=== PATIENT | male | born 1960 | race Caucasian/White ===

== ENCOUNTER 2017-12-31 10:21 | Outpatient (CLI) | payer OTHER, SELFPAY ==
--- NOTE | 2017-12-31 10:21 | DI.RAD_ITS ---
SYMPTOM/DIAGNOSIS: RESTRICTED MOTION LEFT ELBOW: Three views. No priors. There is a large enthesophyte at the insertion site of the triceps on the olecranon. Mild spurring is seen at the distal humerus, radial head and proximal ulna. No acute fracture or dislocation, lytic or sclerotic lesion is seen. No radiopaque foreign bodies are seen in the soft tissues. 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
== END 2017-12-31 10:41 ==
PROVIDERS: PCP Internal Medicine; Visit Provider Physician Assistant Surgical
DX: M25.522 Pain in left elbow (principal); M25.822 Other specified joint disorders, left elbow; M19.022 Primary osteoarthritis, left elbow
CPT/HCPCS: 73080

== ENCOUNTER 2018-06-27 15:55 | Outpatient (REF) | payer OTHER, SELFPAY ==
[2018-06-27 20:19] LABS: BUN 26 mg/dL (7-18); CREATININE 1.03 mg/dL (0.70-1.30); Calcium 8.9 mg/dL (8.5-10.1); Chloride 101 mmol/L (98-107); Glucose 132 mg/dL (70-100); Potassium 3.5 mmol/L (3.5-5.1); Sodium 138 mmol/L (136-145)
== END 2018-06-27 16:15 ==
LOC: NCHCN 15:55
PROVIDERS: PCP Internal Medicine; Visit Provider Internal Medicine
DX: I10 Essential (primary) hypertension (principal); E78.5 Hyperlipidemia, unspecified
CPT/HCPCS: 80048

== ENCOUNTER 2019-05-30 14:27 | Emergency (ER) | payer OTHER, SELFPAY ==
--- NOTE | 2019-05-30 14:29 | W.ED.GENAD ---
Discharge Plan Disposition Patient Disposition: HOME Condition: Stable Discharge Details Chief Complaint: Orthopedic Clinical Impression: Bursitis of elbow Primary Care Provider: Noel Vale ED Provider: Sun Paulino Home Meds and New Rx's Prescriptions: New oxycodone 5 mg tablet 5 mg PO Q6H PRN (Reason: pain) Qty: 10 RF: 0 Continued atorvastatin 20 mg tablet 20 mg PO QPM RF: 0 ibuprofen 400 MG tablet 400 mg PO PRN RF: 0 meloxicam 7.5 MG tablet 7.5 mg PO BID RF: 0 lisinopril-hydrochlorothiazide 1 EACH tablet 1 ea PO HS RF: 0 Discharge Instructions Instructions: Elbow Bursitis (ED) Additional Instructions: Continue your meloxicam as directed. Take the oxycodone as needed and directed for pain. Keep the Herbert wrap in place at all times except when showering. Follow-up with your scheduled appointment with Dr. Granados on Saturday. Return to the emergency department if you develop any worsening or concerning symptoms such as fever, increased pain, redness or swelling. Discharge Data Discharge Physician: Sun Paulino Medical Decision Making 58yo M w/ a h/o cubital tunnel syndrome and ulnar nerve decompression x 2 of L elbow who presents w/ worsening L elbow pain, redness and swelling with worsening flexion and extension to L elbow x 2 days. Pt has limitation of full extension and flexion at L elbow which he states is chronic but more painful with this than usual. Olecranon appears mildly to moderately edematous, erythematous, and very tender to touch. There is no fever or evidence of abscess and pt appears nontoxic. Do not suspect septic or infectious bursitis at this time. Will treat as acute inflammatory bursitis with herbert wrap and to continue meloxicam. Pt states he needs something stronger for pain and states he has taken percocet in the past for pain as needed. Will give a script for oxycodone. Pt has a f/u appt with Dr. Granados on Saturday. He is advised to wear the herbert wrap as much as possible. He is advised to return here with any fever or worsening symptoms. Medical Records Medical records reviewed: Yes I reviewed the patient's medical records. HPI General Mode of arrival: ambulatory. Date/Time Provider Initiated Documentation: 05/30/19 14:28. Limitations to Documentation: no limitations. Information obtained by: patient. HPI Narrative: Pt is a 58yo M w/ a h/o chronic L elbow pain and cubitel tunnel syndrome with ulnar decompression x 2 who presents with worsening L elbow pain with swelling, redness and pain and worsening pain with ROM x 2 days. Pt states he chronically has pain and limitation of flexion and extension for several years but states this is worse over the past 2 days. Pt denies any known injury, trauma or repetitive trauma. Pt also denies any fever. He takes meloxicam Related Data Home Medications Medication Instructions Recorded Confirmed ibuprofen 400 mg PO PRN 06/12/16 05/30/19 lisinopril-hydrochlorothiazide 1 ea PO HS 06/03/17 05/30/19 meloxicam 7.5 mg PO BID 06/03/17 05/30/19 atorvastatin 20 mg tablet 20 mg PO QPM 12/31/17 05/30/19 oxycodone 5 mg PO Q6H PRN #10 tab 05/30/19 Previous Rx's Medication Instructions Recorded oxycodone 5 mg PO Q6H PRN #10 tab 05/30/19 Allergies Allergy/AdvReac Type Severity Reaction Status Date / Time codeine AdvReac Nausea Unverified 01/21/19 11:27 Review of Systems All systems reviewed & are unremarkable except as noted in HPI and below Constitutional Constitutional: Reports as per HPI, Denies chills and Denies fever(s) Eyes Eyes: Denies blurry vision ENT Ears, Nose, Mouth, and Throat: Denies dizziness, Denies sore throat and Denies throat swelling Cardiovascular Cardiovascular: Denies chest pain and Denies dyspnea Respiratory Respiratory: Denies cough and Denies dyspnea Gastrointestinal Gastrointestinal: Denies abdominal pain, Denies diarrhea and Denies vomiting Genitourinary Genitourinary: Denies hematuria and Denies dysuria Musculoskeletal Musculoskeletal: Denies back pain, Denies numbness and Reports other (L elbow pain, redness, swelling) Integumentary/Breasts Skin/Breast: Denies lesions and Denies rash Neurologic Neurologic: Denies dizziness, Denies localized weakness and Denies numbness Allergic/Immunologic Allergic/Immunologic: Denies throat swelling [facility] Medical History (Updated 05/30/19 @ 15:21 by Sun Paulino DO) Chronic back pain (Acute) HTN (hypertension) (Chronic) Surgical History (Updated 03/19/16 @ 10:41 by Danielle Sprague) anal fissure excision (03/07/16) Social History Smoking/Tobacco Use Status: Never Drug use: Never Current gender identity: male Exam Const General: cooperative, healthy appearing and no acute distress [facility] Head: normal to inspection Face and sinus: normal facial exam Eyes General: appearance normal, both eyes and all related structures Neck Neck: normal visual inspection and No submandibular swelling Lymphatic: no lymphadenopathy noted Chest Chest: normal inspection of the chest and no tenderness Resp Effort & Inspection: normal respiratory effort and able to speak in complete sentences Cardio Rate: regular rate Skin General skin exam: no rashes or lesions noted Neuro General: patient alert, patient awake and patient oriented x3 Cognition: normal cognition Speech: speech normal Motor: muscle tone normal throughout Sensory Exam: no sensory deficits noted 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 Extension of L elbow to approximately 160 degrees limited due to pain both actively and passively. Flexion of L elbow to approximately 110 degrees limited due to pain both actively and passively. Extrem Elbow/forearm/wrist images: 1. Mild to moderately edematous, erythematous. Quite tender to touch. No induration, fluctuance, drainage or bleeding. No rash or lesions. Other: L radial and ulnar pulses intact. Psych Appearance: grossly normal Mental Status: mental status grossly normal Speech and Movement: speech and movement normal Affect: normal affect
[2019-05-30 14:34] VITALS: BP 158/87; PULSE 70; RESP 16; TEMP 36.5; O2SAT 99
== END 2019-05-30 15:25 | disposition home or self-care (01) ==
PROVIDERS: Emergency Provider Physician Assistant; PCP Internal Medicine
DX: M70.32 Other bursitis of elbow, left elbow (principal)
CPT/HCPCS: 99283

== ENCOUNTER 2019-06-02 10:29 | Outpatient (CLI) | payer OTHER, SELFPAY ==
--- NOTE | 2019-06-02 10:00 | DI.RAD_ITS ---
EXAM: XR ELBOW LT COMPLETE CLINICAL HISTORY: L elbow pain TECHNIQUE: COMPARISON: XR elbow LT complete from 12/31/2017 FINDINGS: Five views were obtained. In comparison with examination of December 2017, note is again made of raquel y prominent enthesophytes or osteochondromas of the olecranon and lateral humeral epicondyle as well as the distal lateral humeral metaphysis. Cartilaginous joint spaces may be mildly narrowed and irre gular. No gross interval change in appearance in comparison with prior study. IMPRESSION:
== END 2019-06-02 10:49 ==
PROVIDERS: PCP Internal Medicine; Visit Provider Physician Assistant
DX: M25.522 Pain in left elbow (principal); M70.32 Other bursitis of elbow, left elbow
CPT/HCPCS: 73080

== ENCOUNTER 2019-07-01 09:02 | Outpatient (CLI) | payer OTHER, SELFPAY ==
[2019-07-02 15:59] LABS: COVID-19 RT-PCR Result Not Detected ((See Note))
== END 2019-07-01 09:22 ==
PROVIDERS: PCP Internal Medicine; Visit Provider Orthopaedic Surgery
DX: Z11.59 Encounter for screening for other viral diseases (principal); Z01.818 Encounter for other preprocedural examination; M70.22 Olecranon bursitis, left elbow; G56.02 Carpal tunnel syndrome, left upper limb
CPT/HCPCS: U0003

== ENCOUNTER 2019-07-06 06:19 | Day surgery (SDC) | payer OTHER, SELFPAY ==
[2019-07-06] VITALS (7 sets, daily range): BP systolic 87–129; BP diastolic 33–82; PULSE 54–66; RESP 7–17; TEMP 36.5–36.8; O2SAT 94–99
[2019-07-06] MEDS: Lactated Ringers 1,000 ML 80 ML IV ×2 (07:00→11:06)
[2019-07-06] MEDS: ceFAZolin 2 GM/50 ML BAG IVPB (08:26)
--- NOTE | 2019-07-06 09:38 | BONE_PTH ---
PATIENT: Tate Siegel LOC: [facility] U#:[id number] AGE/SX: 58/M ROOM: RE07/06/[address]: Tate Granados MD : 1960 BED: DIS: 07/06/2019 SPEC #: [id number] RECD: 07/06/19 12:25 STATUS: VALENTINE LYONS #: [id number] NATASHA: 07/06/19 09:[address]: Tate Granados DEPT: Surgical Specimen RECD BY: Vero Ruiz ENTERED: 07/06/19 12:26 SP TYPE: Bone OTHR DR: Noel Vale Tissues: 1 - BONE BX/CURRETTE NOT PATH FRACTURE Procedures: GROSS AND MICRO LEVEL 3 DECALCIFICATION Comments: [id number]
--- NOTE | 2019-07-06 10:35 | PDOC.DSDIS_ITS ---
Discharge Plan Disposition Patient Disposition: HOME Condition: Good Discharge Details Reason For Visit: ANT TRANSPOSITION L ULNAR NERVE, ECTR L Attending Provider: Tate Granados Primary Care Provider: Noel Vale Home Meds and New Rx's Prescriptions: New hydrocodone-acetaminophen 5-325 mg tablet 1 tab PO Q6H PRN (Reason: pain) Qty: 20 RF: 0 No Action atorvastatin 20 mg tablet 20 mg PO QPM RF: 0 ibuprofen 400 MG tablet 400 mg PO PRN RF: 0 meloxicam 7.5 MG tablet 7.5 mg PO BID RF: 0 lisinopril-hydrochlorothiazide 1 EACH tablet 1 ea PO HS RF: 0 oxycodone 5 mg tablet 5 mg PO Q6H PRN (Reason: pain) Qty: 10 RF: 0 Discharge Instructions Additional Instructions: May take L arm out of sling and bend and straighten L elbow as often and as long as your pain allows. Keep dressings dry and in place for 1 week. Cover with plastic bag sealed with rubber band around upper arm to shower. Follow up with in one week. Continue to take meloxican 7.5 mg twice/day to decrease swelling and inflammation. Take hydrocodone for breakthru pain, if needed. Referrals: Tate Granados MD [ [facility] STAFF PHYSICIAN] - (f/u in one week for wound check.) Equipment/Supplies: Sling Activity:: Activity as Tolerated Remove Dressings/Wound Care:: Do Not Remove Shower/Bathe:: Cover Diet:: As Tolerated Discharge Orders Discharge Orders: Discharge Order (Routine); Ordered 07/06/19 Ordered By: Tate Granados DS: Diagnosis Discharge Diagnosis (1) Carpal tunnel syndrome, left: Status: Acute (2) Olecranon bursitis, left elbow: Status: Acute (3) Cubital tunnel syndrome on left: Status: Acute
--- NOTE | 2019-07-06 15:39 | ROE_ITS ---
Date of service: 07/06/19 Time of Service: 08:39 Operative Note Operative Note DATE OF PROCEDURE: 07/06/19 PRE-OP DIAGNOSIS: Cubital tunnel syndrome left, carpal tunnel syndrome left, osteophyte left olecranon POST-OP DIAGNOSIS: same PROCEDURE: Anterior transposition ulnar nerve left Excision of osteophyte left olecranon Endoscopic carpal tunnel release left SURGEON: Tate Granados CEMENT [place]ON MAINTENANCE: Usha Lee ANESTHESIA: GETA PATHOLOGY: other (Specimen a resected olecranon spur sent) TOURNIQUET TIME: 100 COMPLICATIONS: None Patient was transported to: PACU Patient's condition: stable Indications: This is a 58-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 He has been scheduled to have an anterior transposition of the ulnar nerve and an endoscopic carpal tunnel release on the left a few months ago. Surgery had to be delayed because of the COVID-19 pandemic. During the past 2 months while waiting for his surgery to be scheduled, he developed localized discomfort at the tip of the olecranon. X-rays revealed a very large traction spur arising from the tip of the olecranon and projecting proximally. Not only was this a source of local pain, was limiting his extension of the left elbow. Excision of the olecranon spur was recommended. He wished to have this done at the same operative setting as his ulnar nerve transposition and his E CTR on the left. I felt this could be safely done. Risk on case of procedure explained patient in detail preop. Procedure Description: Patient was taken the operating room on 07/06/2019 space about the operative and a general affect was administered. Proximal tourniquet was applied to the left upper arm and then the left upper extremity was prepped from fingers to tourniquet and draped free in usual sterile fashion. A curved incision was made on the medial side of the left elbow paralleling the course the ulnar nerve. Incision began just distal to the edge of the tourniquet, curved around the medial epicondyle and then extended distally and anteriorly into the proximal forearm. Incision was carried down to the fascia. Subcutaneous veins were cauterized. The procedure was performed under tourniquet control. Fascia was incised just proximal to the cubital tunnel the ulnar nerve was identified. The fascia was then released along the course of the ulnar nerve proximally to the level where the ulnar nerve passes through the intermuscular septum. Vessel loop was placed around the nerve and gentle traction was placed on the ulnar nerve as all soft tissue constraints were released from the nerve until the level of the first muscular branch arising from the ulnar nerve distal to the cubital tunnel. The nerve root could be easily mobilized anteriorly without tension. The attachment intermuscular septum to the medial condyle was released so the sharp edge would not press on the transposed nerve. The skin flap laterally was then sharply reflected the olecranon bursa which was hypertrophic, was excised. I could palpate the tip of the olecranon spur. Use electrocautery and made a lateral incision directly over the tip of the spur splitting the triceps tendon. Limited medial and lateral dissection was performed performed to expose the spur. Spurs excised in a piecemeal fashion use a rongeur. Some of the bone excised was chalky in appearance and consistency so I could not tell if was calcium or uric acid. Specimen was sent for pathologic examination. Finally a fascial flap was developed a medial condyle the ulnar nerve was transposed anterior to this flap and the edge of the fascial flap was sutured to the subdermal tissue over the mid epicondyle to fashion a sling that would keep the nerve anteriorly transposed. There was irrigated with saline solution the elbow was flexed and extended the nerve was free to move in the sling without tension. I noted that patient had improved extension of his elbow following resection of the olecranon spur. We will monitor his over to 2.5 some 0.252 Marcaine with epinephrine soaked epinephrine solution. Obvious bleeders were cauterized and a dry wound was obtained. The subcu was approximated with interrupted 2-0 Vicryl sutures. Skin is approximated with skin cole. Wound was dressed with Xeroform gauze sterile gauze 4 x 4's ABD pads and wrapped with a Kerlix bandage. He was then wrapped with a 6 inch Herbert bandage for light pressure dressing. Attention was then turned towards the carpal tunnel. Transverse incision was made in line with the proximal flexion crease of the left wrist beginning at the flexor carpi radialis tendon and extending to the fl exor carpi ulnaris tendon. Incision was carried down to the fascia. Subtenon's veins were cauterized. A distally based fascial flap was then fashioned to gain access to the carpal canal. Synovial reflector was then used to free of any adhesions to the undersurface of all carpal ligament. Series of obturators were inserted to make room for the endoscope. A Genome endoscope blade device was the n inserted into the carpal canal. Care was taken to position the endoscope against the hook of the hamate on the ulnar side of the canal. The endoscope was advanced until the distal edge of the volar carpal ligament was clearly visualized. This point the trigger was depressed elevating the blade. The elevated blade was then brought out from distal to proximal to the incision. The endoscope was then inserted again confirmed that the volar carpal ligament was transected and that the median nerve was seen to fall into the gap between the resected margins. Littler scissors were then used to perform subcutaneous fasciotomy from the incision extending approximately 2 inches. Wound was irrigated with saline solution. The wound margins were infiltrated with 0.25% Marcaine with epinephrine solution. A median nerve block was performed with 0.25% Marcaine with epinephrine solution as well. The skin is approximated with 2 horizontal mattress sutures of 4-0 nylon suture material. Wound was dressed with Xeroform gauze sterile gauze 4 x 4's wrapped with a Kerlix bandage and then wrapped with a 3 inch Herbert bandage. Tourniquet was released. There was no breakthrough bleeding to the dressings. Left upper extremity was then placed in a large sling. Patient's anesthesia was reversed without complications he was discharged to the recovery room in good condition. Patient was discharged home from day surgery unit when fully recovered from his general anesthesia. He is given instructions to keep his dressings dry and intact for a week. He will follow-up in Dr. Granados's office in 1 week for wound check. He is encouraged to take his left arm out of the sling and flex and extend his left elbow as often and is much as discomfort allows. He will continue to take his meloxicam 7.5 mg p.o. twice daily to decrease inflammation and swelling. He is given a prescription for breakthrough pain of hydrocodone with APAP 06/27/2024 1 tab every 4 hours as needed.
== END 2019-07-06 12:55 | disposition home or self-care (01) ==
PROVIDERS: PCP Internal Medicine; Visit Provider Orthopaedic Surgery
PROC: (CPT 64718; principal; 2019-07-06 07:30)
PROC: 01N54ZZ Release Median Nerve, Percutaneous Endoscopic Approach (ICD-10-PCS; CPT 29848; 2019-07-06 07:30)
DX: G56.22 Lesion of ulnar nerve, left upper limb (principal); G56.02 Carpal tunnel syndrome, left upper limb; M25.722 Osteophyte, left elbow; M70.22 Olecranon bursitis, left elbow; Y99.0 Civilian activity done for income or pay; I10 Essential (primary) hypertension
CPT/HCPCS: 24120; 29848; 64718; 24105; 88304; 88311; J0690; J1100; J1885; J2001; J2250; J2405; J3010; L3650

== ENCOUNTER 2019-07-22 11:13 | Outpatient (CLI) | payer OTHER, SELFPAY ==
--- NOTE | 2019-07-22 10:45 | DI.RAD_ITS ---
EXAM: XR ELBOW LT LIMITED INDICATION: f/u. COMPARISON: CR XR elbow LT complete from 12/31/2017 CR XR ELBOW LT COMPLETE from 06/02/2019 CR XR ELBOW LT COMPLETE from 06/02/2019 TECHNIQUE: 2D digital imaging was performed. FINDINGS: There has been rib resection of a portion of the large olecranon spur when compared to the previous exam. There is some calcification in the distal triceps tendon. A bony density at the lateral epico ndyle and small osteochondroma of the distal humeral metaphysis are again noted. There is moderate t o severe periarticular spurring. No joint effusion is seen. DATA REPOSITORY: RADIATION DOSE DELIVERED:
[2019-07-22 21:39] LABS: Anion Gap 8.5 mmol/L (3-11); BUN 24 mg/dL (7-18); CO2 28.5 mmol/L (21.0-32.0); CREATININE 1.16 mg/dL (0.70-1.30); Calcium 9.1 mg/dL (8.5-10.1); Calculated LDL 88 mg/dL (<100); Chloride 103 mmol/L (98-107); Cholesterol 167 mg/dL (<200); Glucose 119 mg/dL (74-106); HDL Cholesterol 29 mg/dL (40-60); Potassium 3.4 mmol/L (3.5-5.1); Sodium 140 mmol/L (136-145); Triglyceride 253 mg/dL (<150)
== END 2019-07-22 11:33 ==
PROVIDERS: PCP Internal Medicine; Referring Provider Internal Medicine; Visit Provider Orthopaedic Surgery
DX: M77.8 Other enthesopathies, not elsewhere classified; M19.022 Primary osteoarthritis, left elbow; E78.5 Hyperlipidemia, unspecified; I10 Essential (primary) hypertension; Z00.00 Encounter for general adult medical examination without abnormal findings
CPT/HCPCS: 80048; 80061; 73070

== ENCOUNTER 2019-12-25 09:19 | Outpatient (CLI) | payer OTHER, SELFPAY ==
--- NOTE | 2019-12-25 | DI.RAD_ITS ---
EXAM: XR LUMBAR SPINE COMPLETE CLINICAL HISTORY: LUMBAR BACK PAIN WITH RADICULOPATHY M54.16 TECHNIQUE: COMPARISON: CR LUMBAR SPINE AP, LAT from 12/15/2014 FINDINGS: Six views were obtained. There is a minimal left convex lumbar scoliosis. The SI joints appear fair ly well maintained. There are moderate hypertrophic degenerative changes of the vertebral endplates and facet joints throughout the lumbar region. Intervertebral disc spaces appear fairly well maintai letitia. No compression fracture seen. IMPRESSION: Degenerative changes as described above. RADIATION DOSE DELIVERED: Total DLP
--- NOTE | 2019-12-25 | DI.RAD_ITS ---
EXAM: XR LEG LENGTH CLINICAL HISTORY: LUMBAR BACK PAIN WITH RADICULOPATHY M54.16, RT LEG LENGTH MEASURMENT WITH TECHNIQUE: COMPARISON: No exams were available for comparison FINDINGS: AP views of the lower extremities were obtained for leg length determination. There are moderate deg enerative changes of both hips. 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 IMPRESSION: RADIATION DOSE DELIVERED: Total DLP
== END 2019-12-25 09:39 ==
PROVIDERS: PCP Internal Medicine; Visit Provider Internal Medicine
DX: M54.16 Radiculopathy, lumbar region (principal); M16.0 Bilateral primary osteoarthritis of hip; Z89.611 Acquired absence of right leg above knee
CPT/HCPCS: 72110; 77073

== ENCOUNTER 2020-06-21 12:25 | Outpatient (REF) | payer OTHER, SELFPAY ==
[2020-06-21 14:00] LABS: Anion Gap 8.9 mmol/L (3-11); BUN 21 mg/dL (7-18); CO2 28.1 mmol/L (21.0-32.0); CREATININE 1.2 mg/dL (0.70-1.30); Calcium 8.9 mg/dL (8.5-10.1); Chloride 104 mmol/L (98-107); Glucose 178 mg/dL (74-106); Potassium 3.8 mmol/L (3.5-5.1); Sodium 141 mmol/L (136-145)
== END 2020-06-21 12:26 | disposition home or self-care (01) ==
LOC: NCHCN 12:25
PROVIDERS: PCP Internal Medicine; Visit Provider Internal Medicine
DX: I10 Essential (primary) hypertension (principal)
CPT/HCPCS: 80048

== ENCOUNTER 2020-08-10 08:55 | Outpatient (CLI) | payer OTHER, SELFPAY ==
--- NOTE | 2020-08-10 08:30 | DI.RAD_ITS ---
Exam(s) XR SHOULDER RT COMPLETE 2+V EXAM: XR SHOULDER RT COMPLETE 2+V CLINICAL HISTORY: f/u. TECHNIQUE: 2D digital imaging was performed. COMPARISON: CR RIGHT SHOULDER COMPLETE from 03/06/2017 FINDINGS: There is no evidence fracture or dislocation of glenohumeral joint although there is a calcific densi ty seen adjacent to the proximal diaphysis of the humerus which may be a loose body within the biceps tendon sheath. The subacromial space is not diminished but there is widening and fragmentation within the AC joint a gain noted and this is probably related to prior surgery. No ominous osseous lesions. IMPRESSION: DATA REPOSITORY: RADIATION DOSE DELIVERED:
== END 2020-08-10 08:56 | disposition home or self-care (01) ==
LOC: DIORS 08:56
PROVIDERS: PCP Internal Medicine; Referring Provider Internal Medicine; Visit Provider Student in an Organized Health Care Education/Training Program
DX: M25.511 Pain in right shoulder (principal); M19.011 Primary osteoarthritis, right shoulder
CPT/HCPCS: 73030

== ENCOUNTER 2020-08-24 01:58 | Outpatient (CLI) | payer OTHER, SELFPAY ==
--- NOTE | 2020-08-24 08:45 | DI.MRI_ITS ---
Exam(s) MR UPPER JOINT RT WO EXAM: MR UPPER JOINT RT WO CLINICAL HISTORY: R SHOULDER PAIN, slap lesion rt shoulder, arthritis, tendinitis, S43.431A, TECHNIQUE: Multiplanar multisequence MRI of the shoulder was performed. COMPARISON: MR MRI - L UPPER JOINT WO CONT from 03/14/2016 CR XR SHOULDER RT COMPLETE 2+V from 08/10/2020 FINDINGS: MARROW:There is no evidence of fracture, Hill-Sachs deformity, nor ominous osseous lesions. No bony B ankart lesion evident. ROTATOR CUFF MECHANISM: AC JOINT/ACROMIUM: Widening and fragmentation which is most possibly related to prior surgery. Supraspinatus: There is significant thickening and signal abnormality in the supraspinatus-rotator cu ff tendon. Just above the greater tuberosity the signal abnormality traverses the thickness of the t endon consistent with full-thickness tearing at this level. There is no retraction musculotendinous junction. No prominent atrophy. Infraspinatus: Significant signal abnormality is noted at insertional aspect consistent with high-gra de partial articular side surface tearing. No muscle atrophy Teres Minor: Intact. No evidence of tear nor muscle atrophy. Subscapularis/anterior cuff: There is tendinitis signal at the level multi pennte insertional fibers anterior to the lesser tuberosity. BICEPS TENDON: Normally position in the intertubercular groove. No evidence of tear. There is fluid in the tendon sheath consistent with element of tenosynovitis. LABRUM: There is signal abnormality in the superior labrum posterior to the biceps insertion site. P robable small SLAP-type injury. There is also tearing of the labrum anterosuperiorly. Inferior labr um is intact. Posterior labrum is intact. There is no evidence of paralabral cyst. GLENOHUMERAL JOINT: No large joint effusion. No prominent chondral defects. No osteophytes. No deg enerative subarticular cysts. No evidence of capsular tear. The inferior glenohumeral ligament is in tact. QUADRILATERAL SPACE: No evidence of mass in the region of the axillary nerve and dorsal circumflex hu meral vessels. Visualized triceps muscle at this level appears unremarkable. IMPRESSION: 1. Full-thickness tear of the supraspinatus tendon just above the greater tuberosity, this superimpos ed upon tendinosis thickening. There is also partial thickness articular side tearing of the infrasp inatus tendon. 2. Tendinitis signal evident in the anterior cuff-subscapularis. 3. Labral tearing anterosuperiorly. No evidence of paralabral cyst. DATA REPOSITORY:
== END 2020-08-24 02:18 ==
PROVIDERS: PCP Internal Medicine; Visit Provider Student in an Organized Health Care Education/Training Program
DX: S46.011A Strain of muscle(s) and tendon(s) of the rotator cuff of right shoulder, initial encounter (principal); S43.431A Superior glenoid labrum lesion of right shoulder, initial encounter; M19.011 Primary osteoarthritis, right shoulder; X58.XXXA Exposure to other specified factors, initial encounter
CPT/HCPCS: 73221

== ENCOUNTER 2020-09-14 02:47 | Outpatient (CLI) | payer OTHER, SELFPAY ==
[2020-09-14 11:14] LABS: Source Nasal/Nares
[2020-09-14 13:50] LABS: COVID-19 PCR Negative (Negative)
== END 2020-09-14 02:48 | disposition home or self-care (01) ==
LOC: LBO 02:47
PROVIDERS: PCP Internal Medicine; Visit Provider Student in an Organized Health Care Education/Training Program
DX: Z20.822 Contact with and (suspected) exposure to COVID-19 (principal); Z01.818 Encounter for other preprocedural examination
CPT/HCPCS: 87635

== ENCOUNTER 2020-09-16 06:07 | Day surgery (SDC) | payer OTHER, SELFPAY ==
[2020-09-16] VITALS (8 sets, daily range): BP systolic 98–124; BP diastolic 45–66; PULSE 56–69; RESP 14–17; TEMP 36.2–36.7; O2SAT 96–98; BMI 30.1
--- NOTE | 2020-09-16 06:14 | ANES.PREOP_ITS ---
General Info Date of Service Date Performed: 09/16/20 Height: 5 ft 9.5 in Weight: 93.894 kg Body Mass Index (BMI): 30.1 Surgical Procedure: Operation Date: 09/16/20 07:40 Proposed Procedures Side Surgeon p SHOULDER ARTHROSCOPY, SUBACROMIAL DECOMPRESSION, REVISION DISTAL CLAVICLE, AND ROTATOR CUFF Right Harlan Shook MD s Shoulder Bicep Tenodesis Right Harlan Shook MD Meds Allergies and Home Medications Allergies Allergy/AdvReac Type Severity Reaction Status Date / Time codeine AdvReac Nausea Unverified 09/16/20 06:23 Home Medication Medication Instructions Recorded lisinopril-hydrochlorothiazide 1 ea PO HS 06/03/17 meloxicam 7.5 mg PO BID 06/03/17 atorvastatin 20 mg tablet 20 mg PO QPM 12/31/17 acetaminophen 325 mg capsule 325 mg PO BID PRN cap 08/10/20 Current Visit Medications: Current Medications Generic Name Dose Route Start Last Admin Trade Name Freq PRN Reason Stop Dose Admin Hydromorphone HCl 0 mg 09/16/20 06:13 Hydromorphone 2 Mg/Ml Vial IVP DIRECTED PRN Ringer's Solution 1,000 mls @ 100 mls/hr 09/16/20 06:00 IV 10/15/20 23:59 INFUSION KAYLIE Cefazolin Sodium/Dextrose 2 gm in 50 mls @ 100 mls/hr 09/16/20 06:00 Ancef Duplex IVPB 10/15/20 23:59 PREOP KAYLIE IV Miscellaneous Supplies 1 each 09/16/20 06:00 Iv Access IV 10/15/20 23:59 DIRECTED KAYLIE Naloxone HCl 0 mg 09/16/20 06:13 Naloxone 0.4 Mg/Ml Vial IVP PRN PRN Sodium Chloride 0 ml 09/16/20 06:00 Normal Saline Flush 10 Ml Syr IV 10/15/20 23:59 PRN PRN Sodium Chloride 0 ml 09/16/20 06:00 Normal Saline 10 Ml Vial IJ 10/15/20 23:59 DIRECTED PRN Sterile Water 0 ml 09/16/20 06:00 Water,Injection,Sterile 10 Ml Vial IJ 10/15/20 23:59 DIRECTED PRN PFSH Active Problems Active Problems: Problem Status Onset Code Anal fissure 03/07/16 K60.2 Carpal tunnel syndrome, left G56.02 Olecranon bursitis, left elbow M70.22 Cubital tunnel syndrome on left G56.22 Primary osteoarthritis, left elbow M19.022 Left Achilles tendinitis M76.62 Tendinitis of long head of biceps brachii of right shoulder M75.21 Arthritis of right acromioclavicular joint M19.011 SLAP lesion of right shoulder S43.431A Rotator cuff tear, right M75.101 Medical History Medical History Chronic back pain High cholesterol HTN (hypertension) Surgical History Surgical History anal fissure excision (03/07/16) History of arthroscopic knee surgery History of colonoscopy History of elbow surgery x2 History of hand surgery RRF dupuytrens release History of shoulder surgery Hx of AKA (above knee amputation) Right (Due to traumatic injury 1988) S/P cervical spinal fusion Tobacco Smoking/Tobacco Use Status: Former Tobacco Use Alcohol Alcohol Intake: current Alcohol intake frequency: a few times a week Alcohol type: beer Substance Use Substance use: Never Vital Signs and Lab Results Vital Signs Most Recent Vital Signs in EMR: Temp Pulse Resp BP Pulse Ox 36.7 C 68 16 124/63 98 09/16/20 06:25 09/16/20 06:25 09/16/20 06:25 09/16/20 06:25 09/16/20 06:25 Lab Results Blood Type / Crossmatch: No Data to Display Complete Blood Count: 2 No Data to Display Complete Metabolic Panel: No Data to Display Liver Function Panel: No Data to Display Coagulation Panel: No Data to Display Cardiac Panel: No Data to Display Arterial Blood Gas: No Data to Display Venous Blood Gas: No Data to Display Pancreas Panel: No Data to Display Thyroid Panel: No Data to Display Infectious Disease: Coronavirus (COVID-19)(PCR) Negative (Negative) 09/14/20 10:00 09/14/20 Coronavirus 2019 Source Nasal/Nares 09/14/20 10:00 09/14/20 Blood Cultures: No Data to Display Toxicology Panel: No Data to Display Imaging and Studies Imaging and Studies EKG Summary: 2018: sinus claribel. Anesthesia Assessment and Plan Anesthesia History Personal History: No History of Anesthesia Complications Family History: No Family History of Anesthesia Complications Exercise Tolerance Exercise Tolerance: Metabolic Equivalents>4 Cardiac & Pulmonary Exam Cardiac Exam: Normal S1/S2 Heart Sounds Pulmonary Exam: Clear Bilateral Breath Sounds Airway Exam Known Difficult Airway: No Mallampati Class: 3 Mouth Opening: Narrow (< 3cm) Thyromental Distance: Greater than 3 cm Neck Range of Motion: Full ROM Neck Circumference: Thick Teeth Condition: Normal Dentition ASA Classification ASA Score: ASA 2 Emergency Case?: No NPO Status NPO Status: NPO Clears >2 hours, Solids >8 hours Anesthesia Plan Resuscitation Status: Full Code Anesthesia Technique: Spinal Anesthesia Airway Planned: Endotracheal Tube Monitors Used: Standard Monitors Preoperative Comments:: 59 yo male for shoulder scope/repair. PMHx HTN (lisinopril/hctz), cervical spine fusion (c 5-6-7), chronic back pain, right AKA (traumatc). previous anesthesia: glide 3 grade 1, rsi. Mac 4 grade2, easy mask.
[2020-09-16] MEDS: Lactated Ringers 1,000 ML 100 ML IV (07:03)
--- NOTE | 2020-09-16 07:58 | W.ANESNERVE ---
Nerve Block Single Injection Procedure Date and Time Date Performed: 09/16/20 Procedure Start: 07:18 Location Where Procedure Performed Procedure Location: PACU Reason Performed: Postoperative Analgesia Requesting Provider: Harlan Shook Timeout Performed Timeout Performed: Yes Monitoring Used ECG, Blood Pressure, SpO2 and ETCO2 Sterility Sterility: Hand Hygiene, Surgical Cap, Surgical Mask, Sterile Gloves and Sterile Drape/Sheet Sedation Given During Procedure Sedation Given (Indicate Dose Given): Versed IV Dose:: 2 mg Patient Mental Status Patient Mental Status: Sedate with meaningful communication Nerve Block 1st Nerve Block: Laterality: Right Block Type: Superficial Cervical Plexus Needle / Catheter Used: 100mm SonoPlex II Local Anesthetic Bolus (Indicate Dose Given): Lidocaine used for local infiltration of skin, Injected in 3-5ml increments after negative blood aspiration, Bupivacaine 0.5% Dose:: 13 mL and Exparel Dose:: 10 mL Additives (Indicate Dose Given): None Ultrasound: Sterile probe cover and gel used Ultrasound Image Saved?: Yes Nerve Stimulator: Not Used Paresthesia: None Procedure Tolerated: No Complications and Patient tolerated well Procedure Outcome: Successful Procedure Comment: 5 mL of above mixture to SCPB. Performed By: Jesus Cordova
[2020-09-16] MEDS: ceFAZolin 2 GM/50 ML BAG IVPB (08:00)
[2020-09-16] MEDS: EPINEPHrine 30 MG/30 ML VIAL (08:51)
--- NOTE | 2020-09-16 11:25 | PDOC.DSDIS_ITS ---
Discharge Plan Disposition Patient Disposition: HOME Condition: Stable Discharge Details Reason For Visit: Right shoulder surgery Attending Provider: Harlan Shook Primary Care Provider: Noel Vale Home Meds and New Rx's Prescriptions: New aspirin 81 mg tablet,delayed release (DR/EC) 81 mg PO DAILY 14 Days Qty: 14 RF: 0 naproxen 250 mg tablet 250 - 500 mg PO BID PRN (Reason: Moderate pain or swelling) Qty: 40 RF: 0 oxycodone 5 mg tablet 5 - 10 mg PO Q4H PRN (Reason: moderate to severe pain) Qty: 18 RF: 0 Continued atorvastatin 20 mg tablet 20 mg PO QPM RF: 0 acetaminophen [Tylenol] 325 mg capsule 325 mg PO BID PRNRF: 0 meloxicam 7.5 MG tablet 7.5 mg PO BID RF: 0 lisinopril-hydrochlorothiazide 1 EACH tablet 1 ea PO HS RF: 0 Discharge Instructions Additional Instructions: Surgery: Shoulder arthroscopy with supraspinatus rotator cuff repair, arthroscopic biceps tenodesis, extensive debridement, distal clavicle excision, and subacromial decompression. Activity: You should keep your arm at your side in a neutral position at all times except for physical therapy. Do not try to lift or raise your arm using your own muscles for 6 weeks. You should use the sling whenever you are out of the house. You may have to adjust the abduction pillow or remove it for comfort. At home it is best to remove the sling and rest the arm on a pillow at your side or support the operative side with your other hand. You may allow the arm to dangle at your side. A physical therapy prescription will be sent electronically to begin in about 3 weeks. Prescriptions: Aspirin 81 mg take 1 daily to prevent a blood clot for 2 weeks Naproxen 250 mg take 1-2 every 12 hours with a meal as needed for moderate pain. May resume home meloxicam per patient preference, but do not use naproxen and meloxicam at the same time. Oxycodone 5 mg take 1-2 every 4-6 hours as needed for severe pain You may use [id number] Tylenol (acetaminophen) as needed for mild pain. These pain medications may be taken all at once or in different combinations as needed. Also, recommend Colace (docusate) as a stool softener as surgery and pain medicine cause constipation. Dressings: Remove shoulder bandage after 3 days. Leave the sticky Steri-Strips in place until they fall off or remove them after you shower. Cover the incisions with Band-Aids or leave them open to air. You may shower after 5 days. Follow-up: 10-[address] Shook (11:00 AM on 09/28/20) You may take off the leg compression stockings this evening at home. You may also leave them on a few days longer if you have a history of leg swelling or edema. Let us know right away if you develop any redness, drainage, fevers, chest pain, or trouble breathing. Do not drink alcohol or drive for at least 24 hours after anesthesia. Please call the office during business hours with any questions or concerns. Referrals: Harlan Shook MD [ [facility] STAFF PHYSICIAN] - Discharge Orders Discharge Orders: Discharge Order (Routine); Ordered 09/16/20 Ordered By: Harlan Shook DS: Diagnosis Discharge Diagnosis (1) Bursitis of right shoulder: Status: Acute (2) Tendinitis of long head of biceps brachii of right shoulder: Status: Acute (3) Arthritis of right acromioclavicular joint: Status: Acute (4) SLAP lesion of right shoulder: Status: Acute (5) Rotator cuff tear, right: Status: Acute
--- NOTE | 2020-09-16 11:51 | ROE_ITS ---
Date of service: 09/16/20 Time of Service: 08:00 Operative Note Operative Note DATE OF PROCEDURE: 09/16/20 PRE-OP DIAGNOSIS: Right: 1. Rotator cuff tear 2. SLAP tear with LHB tendinopathy 3. Bursitis 4. Posttraumatic AC joint arthritis POST-OP DIAGNOSIS: same PROCEDURE: Right: 1. Rotator cuff repair, CPT# 31705. This involved repair of the supraspinatus using anchors and sutures to reattach the rotator cuff back to the footprint of the lesser and greater tuberosity. 2. Arthroscopic biceps tenodesis, CPT# 53078. This involved arthroscopically suturing and reattaching the long head of the biceps tendon to the proximal humerus at the superior margin of the bicipital groove with a screw at the correct tension. 3. Extensive debridement, CPT# 81190. This involved using arthroscopic hand instruments, power instruments, and radiofrequency instruments to release to release the long head of the biceps tendon and debride areas of labral tearing, synovitis, and humeral head within the glenohumeral joint anteriorly, superiorly and posteriorly. 4. Subacromial decompression with partial acromioplasty, CPT# 36240. This involved using arthroscopic power instruments and a radiofrequency wand to complete a bursectomy and remove bone spurs on the undersurface of the acromion. 5. Arthroscopic distal clavicle excision, CPT# 37040. This involved arthroscopically exposing the underside of the acromioclavicular joint, smoothing out bone spurs, and and removing prior bone debris and calcification so there was no bone left engaging the acromion. The dental laboratory assistant was medically required in order to help assist in techniques above, which require positioning the arm, holding the arthroscope, and manipulating multiple instruments and sutures at the same time. This cannot be done without the help of an experienced dental laboratory assistant. SURGEON: Harlan Shook DIRECTOR HRIS: Teresa Gann ANESTHESIA TYPE: General LMA/ETT and Primary Nerve Block Refer to Anesthesia Record ESTIMATED BLOOD LOSS: 15 PATHOLOGY: none sent COMPLICATIONS: None Patient was transported to: PACU Patient's condition: stable Implants: Arthrex: 4.75mm SwiveLocks x 4; 4.75mm knotless SwiveLocks x2 Indications: The patient was diagnosed with the above conditions and appropriately indicated for surgical intervention. Please see complete medical record for details. Findings: Exam under anesthesia: Symmetrical limited range of motion including forward elevation 135 degrees and external rotation about 50 degrees. No instability. Glenohumeral joint: Significant anterior superior and posterior synovitis. SLAP tear with disruption and displacement of the superior labrum about the biceps anchor. Minor anterior and posterior labral fraying. Minimal subscapularis footprint fraying with no disruption of the tendon integrity. Only minimal long head biceps tenosynovitis. Disruption of the supraspinatus centrally medial to the articular margin with likely delaminated full-thickness component. Subacromial space: Significant bursitis especially centrally over medial transtendinous delaminated supraspinatus tear as well as laterally over the remnant tissue about the greater tuberosity. Mild undersurface acromial bone spurring. Moderate apparent posttraumatic calcifications and bone ossicles remnant from prior open distal clavicle excision with otherwise intact space and capsule at the AC joint. Only mildly involved anterior infraspinatus mid substance in the tear. Full-thickness supraspinatus tear after fully debrided of marginal and delaminated tissue that was just medial to the articular margin in a transtendinous fashion with about 15 anterior to posterior and 10 mm medial lateral detachment from the greater tuberosity with remainder of mid substance and superior tissue and lateral greater tuberosity well covered in remnant. Procedure Description: In the operating room, general anesthesia was induced. Bilateral shoulders were examined. The patient was positioned in the beachchair position. All bony prominences were well-padded. Preoperative antibiotics were administered. The shoulder was prepped and draped in the usual sterile fashion. The correct patient, procedure, and side of the procedure were all verified prior to incision. Starting through the posterior portal a standard complete diagnostic arthroscopy was performed of the glenohumeral joint including inspection of the long head of the biceps, anterior and superior labrum, subscapularis tendon, supraspinatus and infraspinatus tendons, and axillary recess. The glenoid and humeral head cartilage as well as the posterior labrum were inspected from an anterior viewing portal. Significant findings and interventions noted above. An all-arthroscopic suprapectoral biceps tenodesis was performed through an anterior portal using a Loop N Tack method with a SutureTape FiberLink cinched around and through the tendon. The biceps was tenotomized from the labrum and fixated with a suture anchor at the superior margin of the bicipital groove. Starting through the posterior portal, the arthroscope was directed into the subacromial space. A lateral 50 yard line lateral portal was created. A combin ation of power instruments and a radiofrequency ablator were used to debride bursitis anteriorly, posteriorly, and laterally as well as expose and smooth bone spurring on the undersurface of the acromion. The coracoacromial ligament was preserved. The bursectomy was completed viewing laterally and working from posteriorly and the rotator cuff was thoroughly inspected with findings noted above. The anterior portal was redirected towards the undersurface of the AC joint. A shaver and electrocautery device were used to clear soft tissue from the undersurface of the AC joint. A mechanical shaver was then inserted and used to remove the remnant ossicles and calcifications that were engaging between the distal clavicle and acromion. The undersurface of both were smooth. Care was taken to alternate between working through the anterior portal and viewing through the anterior portal to ensure that proper amount of bone was removed and there was no engaging bone left behind especially superiorly. An additional anterior superior lateral and posterior superior lateral viewing and working portals were established. The rotator cuff and obvious medium sized defect centrally. This was carefully explored removing delaminated frayed material as little as possible until the tear pattern was fully identified. Unfortunately, the interstitial and articular side of the tear was much larger as expected then the small bursal opening. The tear was full-thickness with complete detachment of the tendon medially from the articular margin footprint. There is also detachment centrally over the footprint with remnant fibrinous tissue about 50 to 75% of the medial to lateral margin. The small opening was slightly enlarged to improve working access. The greater tuberosity footprint was prepared to optimize healing removing fibrinous material to a abraded bleeding bone surface. The anterior posterior margin of the tear were probed and intact tissue remained at the anteriormost supraspinatus and anterior aspect of the infraspinatus. The decision was made to leave the lateral significant intact rotator cuff tissue for medial row repair and then side to side convergence increasing chance of tendon to bone and tendon to tendon healing. The punch was used to localize placement at the anterior corner of the tear retracting the interstitial and superficial bursal layers to place a medial row knotless swivel lock anchor. The fiber tapes as well as knotless repair stitches were then passed through the supraspinatus at the appropriate level medial to the tear about the anchor. This was repeated for a posterior medial row knotless swivel lock anchor. The knotless repair sutures were then passed from the anterior and posterior anchor through the other anchor and then provisionally tensioned while reducing the medial transtendinous part of the tear to the medial prepared aspect of the greater tuberosity. This medial knotless repair was then provisionally tightened. There was good apposition of the tendon to bone and anterior to posterior reduction of the interstitial bursal delaminated layers. A fiber tape from the anterior posterior anchor was then brought out laterally and arm positioned and punch used to localize placement of the lateral row anchor. A swivel lock was then inserted with the fiber tapes appropriately tensioned on the repair and secured to bone laterally over the remnant tissue. This was repeated for the posterior lateral anchor. There is excellent medial to lateral and anterior posterior reduction and compression of the medial transtenderness and remnant tissue about the greater tuberosity. The width of the medial row defect was probed and decision was made to add an additional central repair stitch, which was done with a self retri eving suture passer and a fiber link in cinch mode. Anterior and posterior knotless repair mechanisms were final tightened. This FiberLink and the knotless repair sutures from the anterior and posterior medial row anchors were brought out laterally and secured to a middle lateral anchor further securing medial tendon to the medial aspect of the tuberosity as well as further conversion anterior and posterior tissue of the tear and remnant over the tuberosity. The repair was inspected and probed through range of motion found to be well reduce with excellent stability. The shoulder was drained of arthroscopic fluid. All portal sites were copiously irrigated. These incisions were closed using 3-0 Monocryl in a buried fashion and then covered with Mastisol, Steri-Strips, Xeroform, dry gauze, and ABDs. The dressings were covered and secured with Medipore tape. The operative extremity was placed into a sling for immobilization. The patient awoke from anesthesia without complication and was transferred to the recovery room in a stable condition.
--- NOTE | 2020-09-16 12:23 | W.ANESPOSTOP ---
Postoperative Evaluation Date, Time and Location Date Performed: 09/16/20 Time Performed: 12:23 Patient Location: Day Surgery Unit Vital Signs Most Recent Imported Vital Signs: Most Recent Vital Signs Temp Pulse Resp BP Pulse Ox 36.7 C 68 16 124/63 98 09/16/20 12:17 09/16/20 12:17 09/16/20 12:17 09/16/20 12:17 09/16/20 12:17 Pain Score Most Recent Pain Score: Most Recent Pain Score Pain Level 0 09/16/20 12:17 Assessment Mental Status: Awake (Alert & Oriented to Patient Baseline) Airway and Respiratory Function: Patent airway with normal (patient baseline) respiratory exam Cardiovascular Function: Hemodynamically Stable Hydration Status: Adequately Hydrated Nausea & Vomiting: No Nausea or Vomiting Pain: Pt. Denies Any Pain Peripheral Nerve Block: Regional nerve block not resolved at time of post operative discharge
== END 2020-09-16 13:48 | disposition home or self-care (01) ==
PROVIDERS: PCP Internal Medicine; Visit Provider Student in an Organized Health Care Education/Training Program
PROC: (CPT 29827; principal; 2020-09-16 07:30)
PROC: (CPT 23430; 2020-09-16 07:30)
DX: M75.21 Bicipital tendinitis, right shoulder (principal); M19.111 Post-traumatic osteoarthritis, right shoulder; M75.51 Bursitis of right shoulder; M24.111 Other articular cartilage disorders, right shoulder
CPT/HCPCS: 29827; 29828; 29826; 29824; J0690; J1100; J2001; J2250; J2704

== ENCOUNTER 2020-10-21 16:11 | Emergency (ER) | payer OTHER, SELFPAY ==
[2020-10-21] VITALS (17 sets, daily range): BP systolic 129–158; BP diastolic 68–82; PULSE 54–69; RESP 10–17; TEMP 36.4; O2SAT 94–99
--- NOTE | 2020-10-21 16:41 | W.ED.GENAD ---
Discharge Plan Disposition Patient Disposition: HOME Condition: Stable Discharge Details Clinical Impression: Bee sting Primary Care Provider: Noel Vale ED Provider: Idris Patel Home Meds and New Rx's Prescriptions: Continued atorvastatin 20 mg tablet 20 mg PO QPM RF: 0 acetaminophen [Tylenol] 325 mg capsule 325 mg PO BID PRNRF: 0 meloxicam 7.5 MG tablet 7.5 mg PO BID RF: 0 lisinopril-hydrochlorothiazide 1 EACH tablet 1 ea PO HS RF: 0 naproxen 250 mg tablet 250 - 500 mg PO BID PRN (Reason: Moderate pain or swelling) Qty: 40 RF: 0 Discharge Instructions Instructions: Insect Bite or Sting (ED) Additional Instructions: No evidence of serious allergic reaction. Take lifu-mmz-facrdti Pepcid and Benadryl for the next 24-48 hours if she has any symptoms whatsoever. Please watch for new or worsening symptoms and return to the ER for any concerns. Discharge Data Discharge Date/Time-TO BE ENTERED AT DEPARTURE: 10/21/20 18:20 Medical Decision Making 59-year-old male presents having been stung by a hornet in the back of his throat. This occurred about 25 minutes ago he took a single 25 mg tablet of Benadryl. Currently reports his throat is little scratchy but has no other symptoms. Clinically he appears well, nontoxic, no evidence of systemic allergic reaction, angioedema, wheezing, respiratory distress, etc. Purely given the location of the sting, I am concerned about localized swelling. I do believe initiating IV access, giving additional 25 IV Benadryl, 20 Pepcid, 1 L IV fluid, and observing in the ER is reasonable. Patient observed for approximately 1 hour, denies any new symptoms, reports throat is slightly irritated but overall feeling well. Will provide a single dose of viscous lidocaine Upon reevaluation patient reports that he is now asymptomatic. Will attempt p.o. challenge. Patient was observed in the ER for approximately 2 hours, is asymptomatic, shows no signs of decompensation. Was able to tolerate p.o. intake without difficulty. Speaks in full sentences. No clear indication to initiate steroid therapy. Recommend oral Benadryl and Pepcid. Strict discharge and return precautions given. This documentation was generated using UiTVation system, please disregard any oddities of phrase or misspellings. Medical Records Medical records reviewed: Yes I reviewed the patient's medical records. HPI General Mode of arrival: ambulatory. Date/Time Provider Initiated Documentation: 10/21/20 16:12. Limitations to Documentation: no limitations. Information obtained by: patient and family. HPI Narrative: This is a 59-year-old gentleman, past medical history of hypertension, chronic back pain, high cholesterol, presents for a bee sting. He states approximately 25 minutes ago he went to take a drink of a soda can and there was apparently a bee in the soda, it went into his mouth and he believes that it stung him on the back right side of his throat. He states that he was able to spit to be out. He took a single tablet of 25 mg of Benadryl. Patient states that he has a slightly scratchy throat but denies difficulty breathing or swallowing, denies wheezing or skin rash. He has never had an allergic reaction to a bee sting in the past. He initially felt slightly dizzy but that sensation has resolved. He denies any chest pain, shortness of breath, tongue swelling, lip swelling, etc. Related Data Home Medications Medication Instructions Recorded Confirmed lisinopril-hydrochlorothiazide 1 ea PO HS 06/03/17 10/21/20 meloxicam 7.5 mg PO BID 06/03/17 10/21/20 atorvastatin 20 mg tablet 20 mg PO QPM 12/31/17 10/21/20 acetaminophen 325 mg capsule 325 mg PO BID PRN cap 08/10/20 10/21/20 naproxen 250 - 500 mg PO BID PRN #40 tab 09/16/20 10/21/20 Previous Rx's Medication Instructions Recorded naproxen 250 - 500 mg PO BID PRN #40 tab 09/16/20 Allergies Allergy/AdvReac Type Severity Reaction Status Date / Time codeine AdvReac Nausea Unverified 10/21/20 16:22 General Stated Complaint: Allergic GEOVANNA: 3 Review of Systems Constitutional Constitutional: Denies fever(s), Denies headache(s) and Denies weakness ENT Ears, Nose, Mouth, and Throat: Denies headache(s), Denies lip swelling, Denies neck pain, Reports sore throat, Denies throat swelling and Denies tongue swelling Cardiovascular Cardiovascular: Denies chest pain and Denies dyspnea Respiratory Respiratory: Denies dyspnea and Denies wheezing Gastrointestinal Gastrointestinal: Denies nausea Musculoskeletal Musculoskeletal: Denies neck pain, Denies numbness and Denies tingling Integumentary/Breasts Skin/Breast: Denies rash Neurologic Neurologic: Denies headache(s), Denies numbness, Denies tingling and Denies weakness Allergic/Immunologic Allergic/Immunologic: Denies urticaria, Denies lip swelling, Denies throat swelling, Denies tongue swelling and Denies wheezing [facility] Medical History Chronic back pain High cholesterol HTN (hypertension) Surgical History anal fissure excision (03/07/16) History of arthroscopic knee surgery History of colonoscopy History of elbow surgery x2 History of hand surgery RRF dupuytrens release History of shoulder surgery Hx of AKA (above knee amputation) Right (Due to traumatic injury 1988) S/P cervical spinal fusion Family History Mother , multiple myeloma No problems noted. Father No problems noted. Brother Hypertension Social History Smoking/Tobacco Use Status: Former Tobacco Use Quit Date: 02/25/10 Smoking risk assessment performed?: Yes Alcohol Intake: current Alcohol Intake frequency: a few times a week Alcohol type: beer Drug use: Never Current gender identity: male Do you feel safe at home: Yes Do you feel safe in your relationship?: Yes Additional [facility] history: [facility] Exam Const General: cooperative, healthy appearing, comfortable and no acute distress Orientation: alert, awake and oriented x3 HENOH Head: normal to inspection, normocephalic and atraumatic General nose exam: external nose normal Face and sinus: normal facial exam Mouth: oral mucosae normal, lip normal, tongue normal, oropharynx normal and moist mucous membranes Teeth and gingiva: dentition normal Throat: posterior oropharynx normal, uvula midline, uvula not displaced and no uvular edema Eyes General: appearance normal, both eyes and all related structures Alignment and Position: alignment normal Periorbital: periorbital findings normal Eyelids: eyelids normal Conjunctivae: conjunctivae normal Sclera: sclerae normal Cornea: corneas normal Pupils: PERRL EOM: EOM intact bilaterally Direct ophthalmoscopy: normal light reflex Neck Neck: normal visual inspection, full ROM, no lymphadenopathy, no meningeal signs, trachea midline, supple and nontender Resp Effort & Inspection: normal respiratory effort and able to speak in complete sentences Auscultation: clear to auscultation bilaterally Cardio Rate: regular rate Rhythm: regular rhythm Skin General skin exam: no rashes or lesions noted Neuro General: patient alert, patient awake, moves all extremities and no focal motor deficits Cognition: normal cognition Speech: speech normal Sensory Exam: no sensory deficits noted Psych Appearance: grossly normal Mental Status: mental status grossly normal Course Vital Signs Vital signs: Vital Signs Temperature 36.4 C L 10/21/20 16:17 Pulse 69 10/21/20 16:17 Respiratory Rate 15 10/21/20 16:17 Blood Pressure 158/68 H 10/21/20 16:17 Pulse Oximetry 98 10/21/20 16:17 Temperature 36.4 C L 10/21/20 16:17 Temperature Source Skin 10/21/20 16:17 Pulse 69 10/21/20 16:17 Respiratory Rate 15 10/21/20 16:17 Respiratory Effort Non-Labored 10/21/20 16:22 Blood Pressure 158/68 H 10/21/20 16:17 Blood Pressure Position Sitting 10/21/20 16:17 Pulse Oximetry 98 10/21/20 16:17 Oxygen Delivery Method Room Air 10/21/20 16:17 Oxygen Flow Rate 0 10/21/20 16:17 Pain Level 0 10/21/20 16:17
[2020-10-21] MEDS: Normal Saline 1,000 ML 1000 ML IV (17:08)
[2020-10-21] MEDS: diphenhydrAMINE 50 MG/ML VIAL 25 MG IVP (17:08)
[2020-10-21] MEDS: FAMOTIDINE 20 MG/50 ML BAG 200 MG IVPB (17:08)
[2020-10-21] MEDS: Lidocaine 2% Viscous 15 ML CUP PO (17:35)
== END 2020-10-21 18:20 | disposition home or self-care (01) ==
PROVIDERS: Emergency Provider Physician Assistant; PCP Internal Medicine
DX: T63.461A Toxic effect of venom of wasps, accidental (unintentional), initial encounter (principal)
CPT/HCPCS: 96361; 96374; 96375; 99284; 99283; J1200

== ENCOUNTER 2021-07-10 18:34 | Outpatient (REF) | payer OTHER, SELFPAY ==
[2021-07-10 15:26] LABS: Anion Gap 8.1 mmol/L (3-11); BUN 21 mg/dL (7-18); CO2 28.9 mmol/L (21.0-32.0); CREATININE 1.2 mg/dL (0.70-1.30); Calcium 8.5 mg/dL (8.5-10.1); Chloride 106 mmol/L (98-107); Glucose 125 mg/dL (74-106); Potassium 4.1 mmol/L (3.5-5.1); Sodium 143 mmol/L (136-145)
[2021-07-10 15:28] LABS: Hemoglobin A1C 5.7 % (<5.7)
== END 2021-07-10 18:35 | disposition home or self-care (01) ==
LOC: NCHCN 18:34
PROVIDERS: PCP Internal Medicine; Visit Provider Family Medicine
DX: I10 Essential (primary) hypertension (principal); E78.5 Hyperlipidemia, unspecified; Z00.00 Encounter for general adult medical examination without abnormal findings; R73.09 Other abnormal glucose
CPT/HCPCS: 80048; 83036

== ENCOUNTER 2022-07-16 08:57 | Outpatient (REF) | payer OTHER, SELFPAY ==
[2022-07-16 16:12] LABS: HCT 45.7 % (40.0-50.0); HGB 15.9 g/dL (13.5-17.5); MCH 32.1 pg (27.0-33.0); MCHC 34.8 % (32.0-36.0); MCV 92 fL (80-95); MPV 12.4 fL (8.0-11.0); Platelet Count 164 10^3/uL (130-400); RBC 4.95 10^6/uL (4.36-5.78); RDW 12.2 % (11.8-14.1); RDW-SD 41.3 fL; WBC 7.41 10^3/uL (4.4-10.8)
[2022-07-16 17:31] LABS: ALT 58 U/L (16-63); AST 29 U/L (15-37); Albumin 4.1 g/dL (3.4-5.0); Alkaline Phosphatase 67 U/L (46-116); Anion Gap 10.9 mmol/L (3-11); BUN 27 mg/dL (7-18); CO2 29.1 mmol/L (21.0-32.0); CREATININE 1.1 mg/dL (0.70-1.30); Calcium 9.1 mg/dL (8.5-10.1); Chloride 104 mmol/L (98-107); Cholesterol 127 mg/dL (<200); Estimated GFR 76.85 (mL/min/1.73m2); Glucose 131 mg/dL (74-106); Sodium 144 mmol/L (136-145); Total Protein 7.1 g/dL (6.4-8.2); Triglyceride 145 mg/dL (<150)
[2022-07-16 17:55] LABS: Bilirubin, Total 0.5 mg/dL (0.2-1.0); Calculated LDL 66 mg/dL (<100); HDL Cholesterol 32 mg/dL (40-60)
[2022-07-16 22:54] LABS: PSA, Screening 0.2 ng/mL (<=4.5)
[2022-07-17 11:48] LABS: Hemoglobin A1C 5.7 % (<5.7)
== END 2022-07-16 08:58 | disposition home or self-care (01) ==
LOC: NCHCN 08:57
PROVIDERS: PCP Internal Medicine; Visit Provider Family Medicine
DX: Z00.00 Encounter for general adult medical examination without abnormal findings (principal); R73.03 Prediabetes; I10 Essential (primary) hypertension; E78.5 Hyperlipidemia, unspecified; Z12.5 Encounter for screening for malignant neoplasm of prostate
CPT/HCPCS: 80053; 80061; 84153; 85027; 83036

== ENCOUNTER 2022-11-28 10:24 | Outpatient (CLI) | payer OTHER, SELFPAY ==
--- NOTE | 2022-11-28 10:15 | DI.RAD_ITS ---
Exam(s) XR SHOULDER RT COMPLETE 2+V EXAM: XR SHOULDER RT COMPLETE 2+V CLINICAL HISTORY: RIGHT SHOULDER PAIN. TECHNIQUE: 2D digital imaging was performed. Five views. COMPARISON: CR XR SHOULDER RT COMPLETE 2+V from 08/10/2020 FINDINGS: BONES: Multiple bony fragments again noted at the distal clavicle and adjacent to acromion. Spurring at humeral head. No acute fracture is present. No bony destructive lesion is seen. JOINTS: No dislocation present. Mild spurring at glenoid. Glenohumeral joint space is maintained. SOFT TISSUE: Normal. Previously noted calcification at adjacent to proximal humeral shaft is not vis ible on the current exam. IMPRESSION: Stable appearance multiple bony fragments near the AC joint and degenerative changes of the glenohume ral joint. DATA REPOSITORY: RADIATION DOSE DELIVERED:
== END 2022-11-28 10:25 | disposition home or self-care (01) ==
LOC: DIORS 10:25
PROVIDERS: PCP Internal Medicine; Visit Provider Student in an Organized Health Care Education/Training Program
DX: M25.512 Pain in left shoulder (principal)
CPT/HCPCS: 73030

== ENCOUNTER → 2022-12-31 00:20 | Outpatient (CLI) | payer OTHER, SELFPAY ==
--- NOTE | 2022-12-31 06:45 | DI.MRI_ITS ---
Exam(s) MR UPPER JOINT RT WO EXAM: MR UPPER JOINT RT WO CLINICAL HISTORY: right shoulder pain,arthritis rt glenohumeral joint, m19.011. TECHNIQUE: Multiplanar multisequence MRI was performed. COMPARISON: MR MR UPPER JOINT RT WO from 08/24/2020 CR XR SHOULDER RT COMPLETE 2+V from 11/28/2022 FINDINGS: BONES: There is no fracture or contusion pattern. There are postsurgical changes seen in the humeral head. JOINTS: There are degenerative changes seen at the acromioclavicular joint. There is a small amount of fluid seen in the glenohumeral joint. The glenohumeral joint is normal. TENDONS: Supraspinatus: There is hyperintense signal seen within the supraspinatus tendon posteriorly suspicio us for a full-thickness tear. Infraspinatus: There is tendinosis of the infraspinatus tendon. Subscapularis: Tendinosis of the subscapularis tendon is noted. Teres [place]: Unremarkable. Biceps and [place]: Unremarkable. MUSCLES: Unremarkable. GLENOID LABRUM: There is abnormal signal and size of the posterior superior labrum which may represen t degeneration. SOFT TISSUES: Unremarkable. LIGAMENTS: Unremarkable. OTHER: There is a small amount of fluid seen in the subacromial subdeltoid bursa. IMPRESSION: 1. Hyperintense signal seen in the posterior aspect of the supraspinatus tendon suspicious for a full -thickness tear. 2. Postsurgical changes seen in the right shoulder. 3. Tendinosis of the infraspinatus tendon. 4. Abnormal signal decreased size of the posterior superior labrum which may represent degeneration. 5. Degenerative changes seen at the acromioclavicular joint. DATA REPOSITORY:
== END ==
PROVIDERS: PCP Internal Medicine; Visit Provider Student in an Organized Health Care Education/Training Program
DX: M19.011 Primary osteoarthritis, right shoulder (principal); M75.81 Other shoulder lesions, right shoulder
CPT/HCPCS: 73221

== ENCOUNTER 2023-01-31 08:05 | Day surgery (SDC) | payer OTHER, SELFPAY ==
[2023-01-31] VITALS (13 sets, daily range): BP systolic 90–135; BP diastolic 46–76; PULSE 49–61; RESP 13–18; TEMP 36–36.6; O2SAT 94–99; BMI 31.6
--- NOTE | 2023-01-31 07:20 | W.PM.DSUDISC ---
Date of service: 01/31/23 Time of Service: 12:00 Discharge Plan Disposition Patient Disposition: Home Condition: Stable Discharge Details Attending Provider: Harlan Shook Primary Care Provider: Enzo Newton Home Meds and New Rx's Prescriptions: New aspirin 81 mg capsule 81 mg PO DAILY 7 Days Qty: 7 0RF Continued atorvastatin 20 mg tablet 20 mg PO QPM acetaminophen [Tylenol] 325 mg capsule 325 mg PO BID PRN lisinopril-hydrochlorothiazide 1 EACH tablet 1 ea PO HS Discontinued meloxicam 7.5 mg tablet 15 mg PO DAILY Discharge Instructions Additional Instructions: Surgery: Right shoulder arthroscopy with [revision rotator cuff repair, extensive debridement] Activity: [For 6 weeks,] you should keep your arm at your side in a neutral position at all times except for physical therapy. Do not try to lift or raise your arm using your own muscles. You should use the sling whenever you are out of the house. You may have to adjust the abduction pillow or remove it for comfort. At home it is best to remove the sling and rest the arm on a pillow at your side or support the operative side with your other hand. You may allow the arm to dangle at your side. A physical therapy prescription will be sent electronically to begin in about 3 weeks. Prescriptions: Aspirin 81 mg take 1 daily to prevent a blood clot for 7 days Naproxen 250 mg take 1-2 every 12 hours with a meal as needed for moderate pain Oxycodone 5 mg take 1-2 every 4-6 hours as needed for severe pain You may use [id number] Tylenol (acetaminophen) as needed for mild pain. These pain medications may be taken all at once or in different combinations as needed. Also, recommend Colace (docusate) as a stool softener as surgery and pain medicine cause constipation. You may try [id number] diphenhydramine (Benadryl) 25-50 mg nightly as a sleep aid Dressings: Remove shoulder bandage after 3 days. Leave the sticky Steri-Strips in place until they fall off or remove them after you shower. Cover the incisions with Band-Aids or leave them open to air. You may shower after 5 days. Follow-up: 10-[address] Shook You may take off the leg compression stockings this evening at home. You may also leave them on a few days longer if you have a history of leg swelling or edema. Let us know right away if you develop any redness, drainage, fevers, chest pain, or trouble breathing. Do not drink alcohol or drive for at least 24 hours after anesthesia. Please call the office during business hours with any questions or concerns. Discharge Orders Discharge Orders: Discharge Order (Routine); Ordered 01/31/23 Ordered By: Jo Angelo DS: Diagnosis Discharge Diagnosis (1) Rotator cuff tear, right: Status: Acute
--- NOTE | 2023-01-31 07:50 | ROE_ITS ---
Date of service: 01/31/23 Time of Service: 09:00 Operative Note Operative Note DATE OF PROCEDURE: 01/31/23 PRE-OP DIAGNOSIS: Right: 1. Recurrent medial transtendinous rotator cuff tear POST-OP DIAGNOSIS: same PROCEDURE: Right: 1. Revision rotator cuff repair, CPT# 10362. This involved rerepair of the supraspinatus using anchor and sutures to reapposed the medial and lateral tendon edges as well as secure the medial portion of the tear to the medial aspect of the greater tuberosity footprint. 2. Revision extensive debridement, CPT# 70697. This involved using arthroscopic hand instruments, power instruments, and radiofrequency instruments to debride anterior synovitis, superior capsulitis, mild recurrent anterior superior labral fraying, remove permanent suture material from the greater tuberosity site of recurrent tearing, as well as debride this medial aspect of the greater tuberosity extending the footprint slightly medially to optimize bone tendon healing while ensuring previously placed suture anchors were flushed with the newly prepared bone surface. The ice cream freezer assistant was medically required in order to help assist in techniques above, which require positioning the arm, holding the arthroscope, and manipulating multiple instruments and sutures at the same time. This cannot be done without the help of an experienced ice cream freezer assistant. SURGEON: Harlan Shook WOMEN'S STUDIES PROFESSOR: Jo Angelo ANESTHESIA TYPE: General LMA/ETT and Primary Nerve Block Refer to Anesthesia Record ESTIMATED BLOOD LOSS: 15 PATHOLOGY: none sent COMPLICATIONS: None Patient was transported to: PACU Patient's condition: stable Implants: Arthrex 2.6mm FiberTak, triple loaded Indications: The patient was diagnosed with the above conditions and appropriately indicated for surgical intervention. Please see complete medical record for details. Findings: Exam under anesthesia: Full range of motion, no instability Glenohumeral joint: Significant synovitis and capsulitis anterior and superiorly with mild recurrent anterior and superior labral fraying. Obvious delaminated medial trans tenderness supraspinatus recurrent rotator cuff tear Subacromial space: Mild bursitis, no significant acromial bone spurring. Small bursal full-thickness supraspinatus defect centrally in the previous repair with the posterior medial row anchor sutures exposed, larger articular sided defect moderately sized extending anteriorly and posteriorly at about the level of the medial greater tuberosity rotator footprint. Cloud, well-healed rotator cuff tissue more anteriorly and posteriorly to this defect site. Remarkably healthy appearing lateral significant supraspinatus tendon remnant, medial tendon tissue as well with good mobility [id number] as well as over the medial aspect of the greater tuberosity. No signs of chronic tearing like fraying or degeneration. Suture anchors healed, not loose, good tissue and bone quality. No signs of infection. Procedure Description: In the operating room, general anesthesia was induced. Bilateral shoulders were examined. The patient was positioned in the beachchair position. All bony prominences were well-padded. Preoperative antibiotics were administered. The shoulder was prepped and draped in the usual sterile fashion. The correct patient, procedure, and side of the procedure were all verified prior to incision. The previously used anterior superior lateral, lateral 50 yard line, posterior superior lateral portals were reopened starting in the subacromial space. The arthroscope was directed laterally through the full-thickness rotator cuff tear to glenohumeral joint and the posterior portal was reopened. The glenohumeral joint was debrided of synovitis, capsulitis, inferior aspects of the infraspinatus and anterior supraspinatus were debrided as well, and attention was then turned back to the subacromial space. Cannulas were inserted and the obvious tear was identified, see above description. Tendon margins were prepared lightly with the mechanical shaver. The greater tuberosity was debrided but not decorticated to optimize bone tendon healing as well as extending the medial footprint a few millimeters medially to increase the surface area for this medial supraspinatus re-tearing. Tissue had good excursion from medial to lateral across this footprint reapposed it with the healthy lateral tendon remnant. The tear did extend on the articular side partial articular thickness more anteriorly and posteriorly and moderate thickness just about the full-thickness hole. Given the unusual tear and revision setting multiple repair configurations were considered. To limit additional bone holes considering the previous surgery had 6 suture anchors, smaller triple loaded anchor was chosen 2.6 mm fiber tack. It was placed centrally at the prepared medial greater tuberosity footprint through the drill guide, drilled, and the anchor deployed with excellent fixation strength. All 3 suture pairs were confirmed to slide appropriately. The knotless suture anchor was used to place 1 suture tail from each pair through the medial central and posterior margins of the medial tendon tear. The 90 degree lasso was then used to shuttle the corresponding other suture tail from each pair through the appropriate level of the lateral tendon remnant on the greater tuberosity. The suture ends were then secured from anterior to posteriorly with the knots directed laterally using [facility] arthroscopic knots with excellent reduction of the rotator cuff defect both to the bone over the anchor and tendon [id number]. To add additional security given the revision setting and high risk tear pattern, and additional central and posterior wide eygl-[id number] repair suture was shuttled and secured with suture tape SMC arthroscopic knot directing these knots medially. There was excellent reduction and good compression of the tendon across the repair. Fixation was stable through testing and range of motion. The shoulder was drained of arthroscopic fluid. All portal sites were copiously irrigated. These incisions were closed using 3-0 Monocryl in a buried fashion and then covered with Mastisol, Steri-Strips, Xeroform, dry gauze, and ABDs. The dressings were covered and secured with Medipore tape. The operative extremity was placed into a sling for immobilization. The patient awoke from anesthesia without complication and was transferred to the recovery room in a stable condition.
--- NOTE | 2023-01-31 08:47 | W.ANESPRE ---
General Info Date of Service Date Performed: 01/31/23 Height: 5 ft 8 in Weight: 94.3 kg Body Mass Index (BMI): 31.6 Surgical Procedure: Operation Date: 01/31/23 08:40 Proposed Procedure Side Surgeon p Shoulder Revision Rotator Cuff Arthroscopic w/Extensive Debridement, Subacromial Decompression, Possible Allograft Superior Capsular Reconstruction Right Harlan Shook MD Meds Allergies and Home Medications Allergies Allergy/AdvReac Type Severity Reaction Status Date / Time codeine AdvReac Nausea Verified 01/31/23 08:40 Home Medication Medication Instructions Recorded lisinopril 20 1 ea PO HS 06/03/17 mg-hydrochlorothiazide 25 mg tablet atorvastatin 20 mg tablet 20 mg PO QPM 12/31/17 acetaminophen 325 mg capsule 325 mg PO BID PRN 08/10/20 (Tylenol) aspirin 81 mg capsule 81 mg PO DAILY prevent blood clot 01/31/23 7 days #7 caps Current Visit Medications: Current Medications Generic Name Dose Route Start Last Admin Trade Name Freq PRN Reason Stop Dose Admin Ringer's Solution 1,000 mls @ 30 mls/hr 01/31/23 06:00 IV 01/31/23 23:59 INFUSION KAYLIE Cefazolin Sodium/Dextrose 2 gm in 50 mls @ 100 mls/hr 01/31/23 06:00 Ancef Duplex IVPB 01/31/23 23:59 PREOP KAYLIE IV Miscellaneous Supplies 1 each 01/31/23 06:00 Iv Access IV 01/31/23 23:59 DIRECTED KAYLIE Oxycodone HCl 0 mg 01/31/23 07:25 Oxycodone 5 Mg Tab PO 03/02/23 07:24 Q3H PRN PRN Pain Sodium Chloride 0 ml 01/31/23 06:00 Normal Saline Flush 10 Ml Syr IV 01/31/23 23:59 PRN PRN Sodium Chloride 0 ml 01/31/23 06:00 Normal Saline 10 Ml Vial IJ 01/31/23 23:59 DIRECTED PRN Sterile Water 0 ml 01/31/23 06:00 Water,Injection,Sterile 10 Ml Vial IJ 01/31/23 23:59 DIRECTED PRN PFSH Active Problems Active Problems: Problem Status Onset Code Arthritis of right glenohumeral joint M19.011 Bee sting T63.441A Bursitis of right shoulder M75.51 Rotator cuff tear, right M75.101 Left Achilles tendinitis M76.62 Primary osteoarthritis, left elbow M19.022 Cubital tunnel syndrome on left G56.22 Olecranon bursitis, left elbow M70.22 Carpal tunnel syndrome, left G56.02 Anal fissure 03/07/16 K60.2 Medical History Medical History SLAP lesion of right shoulder Arthritis of right acromioclavicular joint Tendinitis of long head of biceps brachii of right shoulder High cholesterol Chronic back pain HTN (hypertension) Medical History Comments:: R. AKA since 1981 with prothesis. prothesis is currently off. Patient ambulates independently. Surgical History Surgical History S/P cervical spinal fusion History of elbow surgery x2 History of hand surgery RRF dupuytrens release History of shoulder surgery History of arthroscopic knee surgery History of colonoscopy Hx of AKA (above knee amputation) Right (Due to traumatic injury 1981) Has prosthesis and ambulates independently anal fissure excision (03/07/16) Tobacco Smoking/Tobacco Use Status: Former Tobacco Use Alcohol Alcohol Intake: current Alcohol intake frequency: a few times a week Alcohol type: beer Substance Use Substance use: Never Substance use type: does not use Vital Signs and Lab Results Vital Signs Most Recent Vital Signs in EMR: Most Recent Vital Signs Temp Pulse Resp BP Pulse Ox 36.2 C L 57 L 16 135/76 98 01/31/23 08:25 01/31/23 08:25 01/31/23 08:25 01/31/23 08:25 01/31/23 08:25 Lab Results Blood Type / Crossmatch: No Data to Display Complete Blood Count: No Data to Display Complete Metabolic Panel: No Data to Display Liver Function Panel: No Data to Display Coagulation Panel: No Data to Display Cardiac Panel: No Data to Display Arterial Blood Gas: No Data to Display Venous Blood Gas: No Data to Display Pancreas Panel: No Data to Display Thyroid Panel: No Data to Display Infectious Disease: No Data to Display Blood Cultures: No Data to Display Toxicology Panel: No Data to Display Imaging and Studies Imaging and Studies Study information below may be from another EMR and interpreted by another provider. Please see original notes in EMR for more complete details. EKG Summary: 2018: sinus claribel. Anesthesia Assessment and Plan Anesthesia History Personal History: No History of Anesthesia Complications Family History: No Family History of Anesthesia Complications Exercise Tolerance Exercise Tolerance: Metabolic Equivalents>4 Pertinent Negatives Pertinent Negatives: No Major Cardiovascular Symptoms or Complaints, No Major Pulmonary Symptoms or Complaints and No History of CVA/TIA Cardiac & Pulmonary Exam Cardiac Exam: Normal S1/S2 Heart Sounds Pulmonary Exam: Clear Bilateral Breath Sounds Implantable Cardiac Device Does patient have a Pacemaker or an ICD?: No Airway Exam Known Difficult Airway: No Mallampati Class: 3 Mouth Opening: Narrow (< 3cm) Thyromental Distance: Greater than 3 cm Neck Range of Motion: Limited ROM (slightly limited due to cervical fusion) Neck Circumference: Thick Teeth Condition: Normal Dentition ASA Classification ASA Score: ASA 2 Emergency Case?: No NPO Status NPO Status: NPO Clears >2 hours, Solids >8 hours Anesthesia Plan Resuscitation Status: Full Code Anesthesia Technique: General Anesthesia Airway Planned: Endotracheal Tube Pain Management: Surgeon and patient request nerve block Monitors Used: Standard Monitors
--- NOTE | 2023-01-31 08:54 | W.PM.DSUDISC ---
Date of service: 01/31/23 Time of Service: 08:54 Discharge Plan Disposition Patient Disposition: Home Condition: Stable Discharge Details Attending Provider: Harlan Shook Primary Care Provider: Enzo Newton Home Meds and New Rx's Prescriptions: New aspirin 81 mg capsule 81 mg PO DAILY 7 Days Qty: 7 0RF Continued atorvastatin 20 mg tablet 20 mg PO QPM acetaminophen [Tylenol] 325 mg capsule 325 mg PO BID PRN lisinopril-hydrochlorothiazide 1 EACH tablet 1 ea PO HS Discontinued meloxicam 7.5 mg tablet 15 mg PO DAILY Discharge Instructions Additional Instructions: Surgery: Right shoulder arthroscopy with [revision rotator cuff repair, extensive debridement] Activity: [For 6 weeks,] you should keep your arm at your side in a neutral position at all times except for physical therapy. Do not try to lift or raise your arm using your own muscles. You should use the sling whenever you are out of the house. You may have to adjust the abduction pillow or remove it for comfort. At home it is best to remove the sling and rest the arm on a pillow at your side or support the operative side with your other hand. You may allow the arm to dangle at your side. A physical therapy prescription will be sent electronically to begin in about 3 weeks. Prescriptions: Aspirin 81 mg take 1 daily to prevent a blood clot for 7 days Naproxen 250 mg take 1-2 every 12 hours with a meal as needed for moderate pain Oxycodone 5 mg take 1-2 every 4-6 hours as needed for severe pain You may use [id number] Tylenol (acetaminophen) as needed for mild pain. These pain medications may be taken all at once or in different combinations as needed. Also, recommend Colace (docusate) as a stool softener as surgery and pain medicine cause constipation. You may try izzu-qma-icwknwj diphenhydramine (Benadryl) 25-50 mg nightly as a sleep aid Dressings: Remove shoulder bandage after 3 days. Leave the sticky Steri-Strips in place until they fall off or remove them after you shower. Cover the incisions with Band-Aids or leave them open to air. You may shower after 5 days. Follow-up: 10-[address] Shook You may take off the leg compression stockings this evening at home. You may also leave them on a few days longer if you have a history of leg swelling or edema. Let us know right away if you develop any redness, drainage, fevers, chest pain, or trouble breathing. Do not drink alcohol or drive for at least 24 hours after anesthesia. Please call the office during business hours with any questions or concerns. Discharge Orders Discharge Orders: Discharge Order (Routine); Ordered 01/31/23 Ordered By: Jo Angelo DS: Diagnosis Discharge Diagnosis (1) Rotator cuff tear, right: Status: Acute
--- NOTE | 2023-01-31 08:59 | PDOC.DSDIS_ITS ---
Date of service: 01/31/23 Time of Service: 11:00 Discharge Plan Disposition Patient Disposition: Home Condition: Stable Discharge Details Attending Provider: Harlan Shook Primary Care Provider: Enzo Newton Home Meds and New Rx's Prescriptions: New aspirin 81 mg capsule 81 mg PO DAILY 7 Days Qty: 7 0RF oxycodone 5 mg tablet 5 - 10 mg PO .q4-6h Qty: 6 0RF meloxicam 7.5 mg tablet 7.5 mg PO DAILY Qty: 30 0RF Continued atorvastatin 20 mg tablet 20 mg PO QPM acetaminophen [Tylenol] 325 mg capsule 325 mg PO BID PRN lisinopril-hydrochlorothiazide 1 EACH tablet 1 ea PO HS Discontinued meloxicam 7.5 mg tablet 15 mg PO DAILY Discharge Instructions Additional Instructions: Surgery: Right shoulder arthroscopy with revision supraspinatus medial trans- tendinous rotator cuff repair and extensive debridement Activity: For 6 weeks, you should keep your arm at your side in a neutral position at all times except for physical therapy. Do not try to lift or raise your arm using your own muscles. You should use the sling whenever you are out of the house. You may have to adjust the abduction pillow or remove it for comfort. At home it is best to remove the sling and rest the arm on a pillow at your side or support the operative side with your other hand. You may allow the arm to dangle at your side. A physical therapy prescription will be sent electronically to begin in about 3 weeks. CONSERVATIVE PROTOCOL. Prescriptions: resume Meloxicam 7.5 mg daily Aspirin 81 mg take 1 daily to prevent a blood clot for 7 days Oxycodone 5 mg take 1-2 every 4-6 hours as needed for severe pain You may use jahd-udu-lfsbclg Tylenol (acetaminophen) as needed for mild pain. These pain medications may be taken all at once or in different combinations as needed. Also, recommend Colace (docusate) as a stool softener as surgery and pain medicine cause constipation. You may try nyxa-erd-atqlvos diphenhydramine (Benadryl) 25-50 mg nightly as a sleep aid Dressings: Remove shoulder bandage after 3 days. Leave the sticky Steri-Strips in place until they fall off or remove them after you shower. Cover the incisions with Band-Aids or leave them open to air. You may shower after 5 days. Follow-up: 10-[address] Shook You may take off the leg compression stockings this evening at home. You may also leave them on a few days longer if you have a history of leg swelling or edema. Let us know right away if you develop any redness, drainage, fevers, chest pain, or trouble breathing. Do not drink alcohol or drive for at least 24 hours after anesthesia. Please call the office during business hours with any questions or concerns. Stand Alone Forms: Anesthesia Discharge Inst., Carolann.Nerve Block Instructions, Raquel Banks ([facility]) Discharge Orders Discharge Orders: Discharge Order (Routine); Ordered 01/31/23 Ordered By: Jo Angelo Discharge Data Discharge Date/Time-TO BE ENTERED AT DEPARTURE: 01/31/23 15:00 DS: Diagnosis Discharge Diagnosis (1) Rotator cuff tear, right: Status: Acute
[2023-01-31] MEDS: Lactated Ringers 1,000 ML 30 ML IV (09:00)
[2023-01-31] MEDS: ceFAZolin 2 GM/50 ML BAG IVPB (09:18)
--- NOTE | 2023-01-31 09:42 | W.ANESNERVE ---
Nerve Block Single Injection Procedure Date and Time Date Performed: 01/31/23 Procedure Start: 09:03 Location Where Procedure Performed Procedure Location: Day Surgery Unit Reason Performed: Postoperative Analgesia Requesting Provider: Harlan Shook Timeout Performed Timeout Performed: Yes Monitoring Used ECG, Blood Pressure, SpO2 and See EMR for corresponding vital signs Sterility Sterility: Hand Hygiene, Surgical Cap, Surgical Mask, Sterile Gloves, Sterile Drape/Sheet and Chlorhexidine Sedation Given During Procedure Sedation Given (Indicate Dose Given): Versed IV Dose:: 2 mg Patient Mental Status Patient Mental Status: Sedate with meaningful communication Nerve Block 1st Nerve Block: Laterality: Right Block Type: Interscalene Ultrasound Image Saved?: Yes Needle / Catheter Used: 100mm SonoPlex II Local Anesthetic Bolus (Indicate Dose Given): Lidocaine used for local infiltration of skin, Injected in 3-5ml increments after negative blood aspiration, Bupivacaine 0.5% Dose:: 10 ml and Exparel Dose:: 10 ml Additives (Indicate Dose Given): None Ultrasound: Sterile probe cover and gel used Nerve Stimulator: Supplement to Ultrasound use and No twitch or parasthesia noted < 0.5 mA Paresthesia: None Procedure Tolerated: No Complications and Patient tolerated well Procedure Outcome: Successful Performed By: Chichi Waggoner
[2023-01-31] MEDS: EPINEPHrine 10 MG/10 ML ML (11:17)
--- NOTE | 2023-01-31 13:08 | W.ANESPOSTOP ---
Postoperative Evaluation Date, Time and Location Date Performed: 01/31/23 Time Performed: 12:44 Patient Location: PACU Vital Signs Most Recent Imported Vital Signs: Most Recent Vital Signs Temp Pulse Resp BP Pulse Ox 36.4 C L 51 L 17 109/61 97 01/31/23 12:55 01/31/23 12:55 01/31/23 12:55 01/31/23 12:55 01/31/23 12:55 Pain Score Most Recent Pain Score: Most Recent Pain Score Pain Level 0 01/31/23 12:55 Assessment Mental Status: Awake (Alert & Oriented to Patient Baseline) Airway and Respiratory Function: Patent airway with normal (patient baseline) respiratory exam Cardiovascular Function: Hemodynamically Stable Hydration Status: Adequately Hydrated Nausea & Vomiting: No Nausea or Vomiting Pain: Pt. Denies Any Pain Peripheral Nerve Block: Regional nerve block not resolved at time of post operative discharge
--- NOTE | 2023-01-31 14:07 | W.ANESPOSTOP ---
Postoperative Evaluation Date, Time and Location Date Performed: 01/31/23 Time Performed: 14:07 Patient Location: Day Surgery Unit Vital Signs Most Recent Imported Vital Signs: Most Recent Vital Signs Temp Pulse Resp BP Pulse Ox 36.2 C L 58 L 18 119/57 L 99 01/31/23 13:58 01/31/23 13:58 01/31/23 13:58 01/31/23 13:58 01/31/23 13:58 Most Recent Vital Signs Temp Pulse Resp BP Pulse Ox 36.4 C L 51 L 17 109/61 97 01/31/23 12:55 01/31/23 12:55 01/31/23 12:55 01/31/23 12:55 01/31/23 12:55 Pain Score Most Recent Pain Score: Most Recent Pain Score Pain Level 0 01/31/23 13:58 Assessment Mental Status: Awake (Alert & Oriented to Patient Baseline) Airway and Respiratory Function: Patent airway with normal (patient baseline) respiratory exam Cardiovascular Function: Hemodynamically Stable Hydration Status: Adequately Hydrated Nausea & Vomiting: No Nausea or Vomiting Pain: Pt. Denies Any Pain Peripheral Nerve Block: Patient did not receive a nerve block
== END 2023-01-31 15:00 | disposition home or self-care (01) ==
LOC: SUR 08:05
PROVIDERS: PCP Family Medicine; Visit Provider Student in an Organized Health Care Education/Training Program
PROC: (CPT 29827; principal; 2023-01-31 08:30)
DX: S46.011A Strain of muscle(s) and tendon(s) of the rotator cuff of right shoulder, initial encounter (principal); X58.XXXA Exposure to other specified factors, initial encounter
CPT/HCPCS: 29827; 29823; 76942; J0690; J1100; J1885; J2001; J2250; J2371; J2405; J2704

== ENCOUNTER → 2023-05-31 00:49 | Outpatient (CLI) | payer OTHER, SELFPAY ==
--- NOTE | 2023-05-31 07:45 | DI.MRI_ITS ---
Exam(s) MR UPPER JOINT RT WO EXAM: MR UPPER JOINT RT WO CLINICAL HISTORY: pain,rt rotator cuff tear,bursitis rt shoulder,m75.51,s46.011d TECHNIQUE: Multiplanar multisequence MRI of the shoulder was performed. COMPARISON: CR XR SHOULDER RT COMPLETE 2+V from 11/28/2022 MR MR UPPER JOINT RT WO from 12/31/2022 FINDINGS: MARROW:There is no evidence of fracture, Hill-Sachs deformity, nor ominous osseous lesions. There is evidence of previous rotator cuff surgery with probable revision procedure since the 12/31/2022 MRI s tudy. GLENOHUMERAL JOINT: Mild degenerative changes. No prominent osteophytes. No degenerative subarticul ar cysts evident the humeral head and osseous glenoid.. ROTATOR CUFF MECHANISM: AC JOINT/ACROMIUM: There is postsurgical widening of the AC joint. There is significant amount of fl uid in the subacromial-subdeltoid bursa now evident, significantly more than on the previous MRI scan of December 2022. There is no evidence of os acromiale. Supraspinatus: The size of the previously described supraspinatus tear has decreased. There is a raquel y thin column of fluid signal between the supra and infraspinatus which may constitute a tiny full-th ickness tear at this level, particularly given the amount of increased fluid in the subacromial space . Best seen sagittal series [id number]/image [id number]. Infraspinatus: Previously described thickening and tendinitis signal in the infraspinatus is again no rei. There does not appear to be a full-thickness tear of the infraspinatus. Teres Minor: Intact. No evidence of tear nor muscle atrophy. Subscapularis/anterior cuff: Intact. No abnormal signal at the level of the multipennate insertional fibers. No significant tear nor atrophy. BICEPS TENDON: Intra-articular aspect poorly visualized and presumed torn there is an AP orientated c hannel in the anteromedial humeral head which may be a tenodesis site but cannot trace the biceps ten don to this level. Biceps tendon is not seen attaching to the anterosuperior labrum. LABRUM: No labral tear identified. No evidence of paralabral cyst. IMPRESSION: 1. Evidence of prior rotator cuff surgery/surgeries and possible humeral head level biceps tenodesis. 2. The size of the previously present full-thickness tear of the supraspinatus has decreased since th e interval surgery but there is increasing amount of fluid in the subacromial space and subtle eviden ce of a thin focus of fluid continuity through the tendon, these findings probably consistent with th in full-thickness tear. 3. Thickening tendinitis/tendinosis of the infraspinatus again noted but without tear of this tendon. 4. Biceps tendon intra-articular aspect poorly visualized. There is also an AP orientated channel in the medial half of the humeral head which is probably tenodesis site. 5. There are no labral tears identified. DATA REPOSITORY:
== END ==
PROVIDERS: PCP Family Medicine; Visit Provider Student in an Organized Health Care Education/Training Program
DX: M25.511 Pain in right shoulder (principal); M75.51 Bursitis of right shoulder; M75.121 Complete rotator cuff tear or rupture of right shoulder, not specified as traumatic; M75.81 Other shoulder lesions, right shoulder; S46.011D Strain of muscle(s) and tendon(s) of the rotator cuff of right shoulder, subsequent encounter; Z98.890 Other specified postprocedural states
CPT/HCPCS: 73221

== ENCOUNTER 2023-06-10 05:52 | Outpatient (CLI) | payer OTHER, SELFPAY ==
[2023-06-10 13:11] LABS: Abs Immature Grans 0.02 10^3/uL (0.0-0.06); Absolute Basophil Count 0.05 10^3/uL (0.0-0.2); Absolute Eosinophil Count 0.17 10^3/uL (0.0-0.7); Absolute Lymphocyte Count 1.87 10^3/uL (1.2-3.4); Absolute Monocyte Count 0.56 10^3/uL (0.1-0.8); Absolute Neutrophil Count 4.31 10^3/uL (1.2-6.7); Basophils % 0.7; Eosinophils % 2.4; HCT 44.2 % (40.0-50.0); HGB 15.9 g/dL (13.5-17.5); Immature Grans % 0.3; Lymphocytes % 26.8; MCH 31.9 pg (27.0-33.0); MCV 89 fL (80-95); MPV 11.2 fL (8.0-11.0); Neutrophils % 61.8; Platelet Count 168 10^3/uL (130-400); RBC 4.99 10^6/uL (4.36-5.78); RDW-SD 38.8 fL; WBC 6.98 10^3/uL (4.4-10.8)
[2023-06-10 13:14] LABS: ESR 4 mm/hr (0-20)
[2023-06-10 13:46] LABS: C-Reactive Protein < 0.50 mg/dL (<or=0.5)
== END 2023-06-10 05:53 | disposition home or self-care (01) ==
LOC: LBO 05:52
PROVIDERS: PCP Family Medicine; Visit Provider Student in an Organized Health Care Education/Training Program
DX: S46.011D Strain of muscle(s) and tendon(s) of the rotator cuff of right shoulder, subsequent encounter (principal); X58.XXXD Exposure to other specified factors, subsequent encounter
CPT/HCPCS: 36415; 85652; 85025; 86140

== ENCOUNTER 2023-07-18 09:32 | Outpatient (REF) | payer OTHER, SELFPAY ==
[2023-07-18 15:12] LABS: ALT 72 U/L (16-63); AST 43 U/L (15-37); Albumin 4.2 g/dL (3.4-5.0); Alkaline Phosphatase 70 U/L (46-116); Anion Gap 9.7 mmol/L (3-11); BUN 24 mg/dL (7-18); Bilirubin, Total 0.8 mg/dL (0.2-1.0); CO2 30.3 mmol/L (21.0-32.0); CREATININE 1.1 mg/dL (0.70-1.30); Calcium 9.2 mg/dL (8.5-10.1); Calculated LDL 78 mg/dL (<100); Chloride 103 mmol/L (98-107); Cholesterol 138 mg/dL (<200); Estimated GFR 76.37 (mL/min/1.73m2); Glucose 157 mg/dL (74-106); HDL Cholesterol 33 mg/dL (40-60); Hemoglobin A1C 6.8 % (<5.7); Potassium 3.8 mmol/L (3.5-5.1); Sodium 143 mmol/L (136-145); Total Protein 6.9 g/dL (6.4-8.2); Triglyceride 135 mg/dL (<150)
== END 2023-07-18 09:33 | disposition home or self-care (01) ==
LOC: NCHCN 09:32
PROVIDERS: PCP Family Medicine; Visit Provider Family Medicine
DX: E78.5 Hyperlipidemia, unspecified (principal); I10 Essential (primary) hypertension; R73.03 Prediabetes
CPT/HCPCS: 80053; 80061; 83036

== ENCOUNTER 2023-12-09 11:45 | Outpatient (CLI) | payer OTHER, SELFPAY ==
--- NOTE | 2023-12-09 08:26 | DI.RAD_ITS ---
Exam(s) XR FOOT LT COMPLETE EXAM: XR FOOT LT COMPLETE CLINICAL HISTORY: cyst left foot. TECHNIQUE: 2D digital imaging was performed of the left foot. Three images were obtained. AP, obli que and lateral views were obtained. COMPARISON: CR LEFT ANKLE COMPLETE from 08/21/2013 FINDINGS: BONES: No acute fracture is present. No suspicious lytic or sclerotic lesion is seen. There is an en thesophyte seen at the posterior calcaneus. JOINTS: No dislocation present. Mild degenerative changes are seen in the foot particularly at the 1s t MTP joint. SOFT TISSUE: There is mild focal soft tissue swelling lateral to the base of the 5th metatarsal bone. No soft tissue calcification is seen. There is mild cortical thickening in the underlying bone, ho wever this was present on the x-ray of the ankle from 08/21/2013. IMPRESSION: 1. No suspicious cystic or scleral lesion is seen in the bones. 2. Mild degenerative changes of the foot. 3. Question of mild focal soft tissue swelling of the lateral aspect of the foot. Please correlate w ith the patient's physical exam. If there is concern for soft tissue lesion, MRI or ultrasound shoul d be considered for further evaluation. DATA REPOSITORY: RADIATION DOSE DELIVERED:
== END 2023-12-09 11:46 | disposition home or self-care (01) ==
LOC: DIORS 11:45
PROVIDERS: PCP Family Medicine; Visit Provider Physician Assistant
DX: M67.472 Ganglion, left ankle and foot (principal)
CPT/HCPCS: 73630

== ENCOUNTER 2024-01-29 09:57 | Day surgery (SDC) | payer OTHER, SELFPAY ==
[2024-01-29 10:44] VITALS: BP 135/82; PULSE 57; RESP 16; TEMP 36.4; O2SAT 97
[2024-01-29] MEDS: Acetaminophen 500 MG TAB 1000 MG PO (11:04)
[2024-01-29] MEDS: Celecoxib 200 MG CAP 400 MG PO (11:04)
--- NOTE | 2024-01-29 11:21 | W.ANESPRE ---
General Info Date of Service Date Performed: 01/29/24 Height: 5 ft 8 in Weight: 86.001 kg Body Mass Index (BMI): 28.8 Surgical Procedure: Operation Date: 01/29/24 13:10 Proposed Procedure Side Surgeon p Foot Cyst Excision Left Cornel Park MD Meds Allergies and Home Medications Allergies Allergy/AdvReac Type Severity Reaction Status Date / Time codeine AdvReac Nausea Verified 01/29/24 10:36 Home Medication ?Medication ?Instructions ?Recorded lisinopril 20 1 ea PO HS 06/03/17 mg-hydrochlorothiazide 25 mg tablet atorvastatin 20 mg tablet 20 mg PO QPM 12/31/17 acetaminophen 325 mg capsule 325 mg PO BID PRN 08/10/20 (Tylenol) magnesium oxide 500 mg capsule 500 mg PO DAILY 02/13/23 meloxicam 15 mg tablet 15 mg PO DAILY 03/27/23 Current Visit Medications: Current Medications Generic Name Dose Route Start Last Admin Trade Name Freq PRN Reason Stop Dose Admin Acetaminophen 1,000 mg 01/29/24 06:00 01/29/24 11:04 Acetaminophen 500 Mg Tab PO 01/29/24 23:59 1,000 mg PREOP KAYLIE Administration Celecoxib 400 mg 01/29/24 06:00 01/29/24 11:04 Celecoxib 200 Mg Cap PO 01/29/24 23:59 400 mg PREOP KAYLIE Administration Ringer's Solution 1,000 mls @ 80 mls/hr 01/29/24 06:00 IV 01/29/24 23:59 INFUSION KAYLIE Cefazolin Sodium/Dextrose 2 gm in 50 mls @ 100 mls/hr 01/29/24 06:00 Ancef Duplex IVPB 01/29/24 23:59 PREOP KAYLIE IV Miscellaneous Supplies 1 each 01/29/24 06:00 Iv Access IV 01/29/24 23:59 DIRECTED KAYLIE Sodium Chloride 0 ml 01/29/24 06:00 Normal Saline Flush 10 Ml Syr IV 01/29/24 23:59 PRN PRN Sodium Chloride 0 ml 01/29/24 06:00 Normal Saline 10 Ml Vial IJ 01/29/24 23:59 DIRECTED PRN Sterile Water 0 ml 01/29/24 06:00 Water,Injection,Sterile 10 Ml Vial IJ 01/29/24 23:59 DIRECTED PRN PFSH Active Problems Active Problems: Problem Status Onset Code Ganglion cyst of left foot Acute M67.472 Arthritis of right glenohumeral joint Acute M19.011 Bee sting Acute T63.441A Rotator cuff tear, right Acute M75.101 Left Achilles tendinitis Acute M76.62 Primary osteoarthritis, left elbow Acute M19.022 Cubital tunnel syndrome on left Acute G56.22 Olecranon bursitis, left elbow Acute M70.22 Carpal tunnel syndrome, left Acute G56.02 Anal fissure Acute 03/07/16 K60.2 Medical History Medical History Bursitis of right shoulder SLAP lesion of right shoulder Arthritis of right acromioclavicular joint Tendinitis of long head of biceps brachii of right shoulder High cholesterol Chronic back pain HTN (hypertension) Medical History Comments:: RAndrea HUNGA since 1981 with prothesis. prothesis is currently off. Patient ambulates independently. Surgical History Surgical History S/P cervical spinal fusion History of elbow surgery x2 History of hand surgery RRF dupuytrens release History of shoulder surgery History of arthroscopic knee surgery History of colonoscopy Hx of AKA (above knee amputation) Right (Due to traumatic injury 1981) Has prosthesis and ambulates independently anal fissure excision (03/07/16) Tobacco Smoking/Tobacco Use Status: Former Tobacco Use Alcohol Alcohol Intake: current Alcohol intake frequency: a few times a week Alcohol type: beer Substance Use Substance use: Never Substance use type: does not use Details: alcohol: unknown Vital Signs and Lab Results Vital Signs Most Recent Vital Signs in EMR: Most Recent Vital Signs Temp Pulse Resp BP Pulse Ox 36.4 C L 57 L 16 135/82 97 01/29/24 10:44 01/29/24 10:44 01/29/24 10:44 01/29/24 10:44 01/29/24 10:44 Lab Results Blood Type / Crossmatch: No Data to Display Complete Blood Count: No Data to Display Complete Metabolic Panel: No Data to Display Liver Function Panel: No Data to Display Coagulation Panel: No Data to Display Cardiac Panel: No Data to Display Arterial Blood Gas: No Data to Display Venous Blood Gas: No Data to Display Pancreas Panel: No Data to Display Thyroid Panel: No Data to Display Infectious Disease: No Data to Display Blood Cultures: No Data to Display Toxicology Panel: No Data to Display Imaging and Studies Imaging and Studies Study information below may be from another EMR and interpreted by another provider. Please see original notes in EMR for more complete details. EKG Summary: 2018: sinus claribel. Anesthesia Assessment and Plan Anesthesia History Personal History: No History of Anesthesia Complications Family History: No Family History of Anesthesia Complications Exercise Tolerance Exercise Tolerance: Metabolic Equivalents>4 Pertinent Negatives Pertinent Negatives: No Major Cardiovascular Symptoms or Complaints, No Major Pulmonary Symptoms or Complaints and No History of CVA/TIA Cardiac & Pulmonary Exam Cardiac Exam: Normal S1/S2 Heart Sounds Pulmonary Exam: Clear Bilateral Breath Sounds Implantable Cardiac Device Does patient have a Pacemaker or an ICD?: No Airway Exam Known Difficult Airway: No Mallampati Class: 3 Mouth Opening: Narrow (< 3cm) Thyromental Distance: Greater than 3 cm Neck Range of Motion: Limited ROM Neck Circumference: Thick Teeth Condition: Normal Dentition ASA Classification ASA Score: ASA 2 Emergency Case?: No NPO Status NPO Status: NPO Clears >2 hours, Solids >8 hours Anesthesia Plan Resuscitation Status: Full Code Anesthesia Technique: General Anesthesia Airway Planned: Natural Airway Monitors Used: Standard Monitors
[2024-01-29 11:23] VITALS: BMI 28.8
--- NOTE | 2024-01-29 11:55 | W.PREOPHP ---
Assessment and Plan Assessment and plan (1) Ganglion cyst of left foot: Status: Acute Assessment and plan: Tate is a 63-year-old who has a ganglion cyst about the dorsal lateral aspect of the left foot. Is bothering him on a daily basis and therefore I did offer excision. I reviewed the surgery with him. I discussed the risk to include bleeding, infection, pain, stiffness, recurrence, need for repeat procedures, damage nerves and vessels. Despite these risk, he elects to proceed. History of Present Illness Narrative: Tate is a 63-year-old male who have seen previously in the office for a cyst about the dorsal lateral aspect of the left foot. This is interfering with shoe wear and with daily function. He is here today for cyst excision. He denies any other changes to his medical history. No chest pain or shortness of breath. Please see the previous office note for complete detailed history of his ongoing complaints. Review of Systems All systems reviewed & are unremarkable except as noted in HPI and below PFSH All Active Problems Ganglion cyst of left foot (Acute) S/P Excision: 01/29/2024 Arthritis of right glenohumeral joint (Acute) Bee sting (Acute) Rotator cuff tear, right (Acute) Left Achilles tendinitis (Acute) Primary osteoarthritis, left elbow (Acute) Cubital tunnel syndrome on left (Acute) Olecranon bursitis, left elbow (Acute) Carpal tunnel syndrome, left (Acute) Anal fissure (Acute 03/07/16) excised Medical History Bursitis of right shoulder SLAP lesion of right shoulder Arthritis of right acromioclavicular joint Tendinitis of long head of biceps brachii of right shoulder High cholesterol Chronic back pain HTN (hypertension) Surgical History S/P cervical spinal fusion History of elbow surgery x2 History of hand surgery RRF dupuytrens release History of shoulder surgery History of arthroscopic knee surgery History of colonoscopy Hx of AKA (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 Father No problems noted. Brother Hypertension Social History Smoking/Tobacco Use Status: Former Tobacco Use Quit Date: 02/25/18 Smoking risk assessment performed?: Yes Alcohol Intake: current Alcohol Intake frequency: a few times a week Alcohol type: beer Drug use: Never Substance use type: does not use Details: alcohol: unknown Housing: apartment Current gender identity: male Do you feel safe at home: Yes Do you feel safe in your relationship?: Yes Additional Social history: UTAP Meds Allergies and Home Medications Allergies Allergy/AdvReac Type Severity Reaction Status Date / Time codeine AdvReac Nausea Verified 01/29/24 10:36 Home Medications ?Medication ?Instructions ?Recorded ?Confirmed ?Type lisinopril 20 1 ea PO HS 06/03/17 01/29/24 History mg-hydrochlorothiazide 25 mg tablet atorvastatin 20 mg tablet 20 mg PO QPM 12/31/17 01/29/24 History acetaminophen 325 mg capsule 325 mg PO BID PRN 08/10/20 01/29/24 History (Tylenol) magnesium oxide 500 mg capsule 500 mg PO DAILY 02/13/23 01/29/24 History meloxicam 15 mg tablet 15 mg PO DAILY 03/27/23 01/29/24 History Exam Const General: cooperative, healthy appearing, comfortable and no acute distress Resp Effort & Inspection: normal respiratory effort Auscultation: clear to auscultation bilaterally Cardio Rate: regular rate Rhythm: regular rhythm Results Last Vital Signs Temp 36.4 C L 01/29/24 10:44 Pulse 57 L 01/29/24 10:44 Resp 16 01/29/24 10:44 BP 135/82 01/29/24 10:44 Pulse Ox 97 01/29/24 10:44
[2024-01-29] MEDS: ceFAZolin 2 GM/50 ML BAG IVPB (12:03)
[2024-01-29] MEDS: Bupivacaine 0.25% Pres-Free 30 ML VIAL (12:18)
--- NOTE | 2024-01-29 12:29 | W.PM.DSUDISC ---
Date of service: 01/29/24 Discharge Plan Disposition Patient Disposition: Home Condition: Good Discharge Details Reason For Visit: Excision cyst L foot Attending Provider: Cornel Park Primary Care Provider: Enzo Newton Home Meds and New Rx's Prescriptions: Continued atorvastatin 20 mg tablet 20 mg PO QPM acetaminophen [Tylenol] 325 mg capsule 325 mg PO BID PRN magnesium oxide 500 mg capsule 500 mg PO DAILY meloxicam 15 mg tablet 15 mg PO DAILY lisinopril-hydrochlorothiazide 1 EACH tablet 1 ea PO HS Discharge Instructions Additional Instructions: Foot Cyst Removal Discharge Instructions Activity: You may weight bear as tolerated. You should wear the boot when you are up and mobilizing, but may remove it when not. You may transition to a regular shoe as tolerated. Dressings: You should keep the initial dressing on for at least 3 days. After 3 days, you may remove it and get it wet in the shower. You should keep it covered with a light gauze dressing or wrap until follow-up. Medications: - You should take Tylenol and Meloxicam around the clock for baseline pain. Follow-up: 2 weeks Stand Alone Forms: Anesthesia Discharge Inst., Raquel Banks (DSU) Referrals: Cornel Park MD [ [facility] STAFF PHYSICIAN] - 02/10/24 9:15 am Activity:: Activity as Tolerated Remove Dressings/Wound Care:: 72 hours Shower/Bathe:: 72 hours Diet:: As Tolerated Discharge Orders Discharge Orders: Discharge Order (Routine); Ordered 01/29/24 Ordered By: Aaron Miles DS: Diagnosis Discharge Diagnosis (1) Ganglion cyst of left foot: Status: Acute
[2024-01-29 12:30] VITALS: BP 104/64; PULSE 50; RESP 16; TEMP 36; O2SAT 93
--- NOTE | 2024-01-29 12:31 | ROE_ITS ---
Operative Note Operative Note PRE-OP DIAGNOSIS: Left Foot Ganglion Cyst POST-OP DIAGNOSIS: same PROCEDURE: Excision of cyst from the left foot SURGEON: Cornel Park ANESTHESIA TYPE: General:No Airway Refer to Anesthesia Record ESTIMATED BLOOD LOSS: 0 PATHOLOGY: none sent COMPLICATIONS: None Indications: Tate is a 63-year-old male who is seen previously in the office for ganglion cyst about the dorsal lateral aspect of the left foot. He is here today for exc ision. I reviewed the risk of the procedure with him to include bleeding, infection, pain, stiffness, recurrence, need for repeat procedures, damage nerves and vessels. Despite these risk, he elects to proceed. Findings: Ganglion cyst with semisoft as well as liquid components of mucinous fluid was seen about the dorsal lateral aspect the left foot, arising from the fifth TMT joint. Procedure Description: Tate was greeted the preoperative holding area. His identity is confirmed and the correct site was identified and marked. The consent was reviewed the patient and signed. The history and physical was updated. He was taken to the operating room and placed into the supine position on the operating room table. The left leg was prepped ChloraPrep and draped in a standard fashion. Prophylactic antibiotics in the form of cefazolin were administered. A timeout performed for safe surgery. The proposed incision, approximate 3 cm longitudinal incision overlying the cyst, was drawn on the skin. This surgical area was then anesthetized with 0.25% bupivacaine with epinephrine. The skin was incised sharply. Blunt dissection is carried out through the skin to identify the cyst capsule. There is 1 passing venous structure which was cauterized. The cyst capsule was encountered. It was deflated. There is a thick mucinous fluid which was expressed. There also was some more gelatinous material seen within the cyst as well which appear to be congealed mucinous cystic fluid. The cyst capsule was removed in whole. This was traced down to the fifth TMT joint. It seemed to track down to the lateral base of the fifth metatarsal. There was some prominence to the cuboid as well as the fourth metatarsal base but the capsule was intact and there was no defect seen. An arthrotomy was performed of the fifth TMT joint and soft tissue around this was debrided. However, no bony resection was performed. The wound was fully expressed and there was no remnant cystic fluid nor cystic capsular material. The wound was irrigated. The deep tissues were closed with 3-0 Vicryl and the skin was closed with a runnin 4-0 Monocryl in a subcuticular fashion, reinforced with skin glue. The wound was dressed with Mepilex and an Herbert wrap. Date of Procedure: 01/29/24
[2024-01-29 13:00] VITALS: BP 106/61; PULSE 51; RESP 16; TEMP 36.2; O2SAT 95
--- NOTE | 2024-01-29 14:01 | W.ANESPOSTOP ---
Postoperative Evaluation Date, Time and Location Date Performed: 01/29/24 Time Performed: 13:14 Patient Location: Day Surgery Unit Vital Signs Most Recent Imported Vital Signs: Most Recent Vital Signs Temp Pulse Resp BP Pulse Ox 36.0 C L 50 L 16 104/64 93 01/29/24 12:30 01/29/24 12:30 01/29/24 12:30 01/29/24 12:30 01/29/24 12:30 Pain Score Most Recent Pain Score: Most Recent Pain Score Pain Level 0 01/29/24 12:30 Assessment Mental Status: Awake (Alert & Oriented to Patient Baseline) Airway and Respiratory Function: Patent airway with normal (patient baseline) respiratory exam Cardiovascular Function: Hemodynamically Stable Hydration Status: Adequately Hydrated Nausea & Vomiting: No Nausea or Vomiting Pain: Pt. Denies Any Pain Peripheral Nerve Block: Patient did not receive a nerve block
== END 2024-01-29 13:25 | disposition home or self-care (01) ==
PROVIDERS: PCP Family Medicine; Visit Provider Student in an Organized Health Care Education/Training Program
PROC: (CPT 28090; principal; 2024-01-29 13:00)
DX: M67.472 Ganglion, left ankle and foot (principal); I10 Essential (primary) hypertension; E78.00 Pure hypercholesterolemia, unspecified
CPT/HCPCS: 28090; J0665; J0690; J2003; J2405; J2704

== ENCOUNTER 2024-07-24 00:22 | Outpatient (CLI) | payer OTHER, SELFPAY ==
--- NOTE | 2024-07-24 | DI.MRI_ITS ---
Exam(s) MR CERVICAL SPINE WO EXAM: MR CERVICAL SPINE WO CLINICAL HISTORY: CHRONIC NECK PAIN, M54.2, CERVICALGIA TECHNIQUE: Multiplanar multisequence MRI of the cervical spine was performed without intravenous con trast. COMPARISON: No exams were available for comparison FINDINGS: There is anterior fusion plate C5-C7 levels. CERVICOMEDULLARY JUNCTION: Intact with no evidence of cerebellar tonsillar ectopia. No obvious abnor mality of the odontoid process. No evidence of Chiari 1 malformation. CERVICAL SPINAL CORD: There is no abnormal signal in the cervical spinal cord and no evidence of foca l cord atrophy nor focal cord swelling. OSSEOUS:There are no cervical fractures evident. No significant osseous lesions in the cervical vert ebrae. No signal abnormality to suggest discitis nor osteomyelitis. INDIVIDUAL LEVELS: C2-3: Normal disc height. Mild central annular bulging which slightly impresses the anterior thecal sac. Central canal dimensions are lower normal. Facet joints appear relatively normal. No signific ant foraminal stenosis. No abnormal signal in the spinal cord at this level C3-4: Preserved disc height. Posteriorly there is a central subligamentous disc protrusion which eff aces the anterior thecal sac. Contacts the anterior aspect of the cord. Results in mild central spi nal canal stenosis with AP measurement of the canal being 7 mm. There are degenerative changes in th e facet joints at this level, slightly more prominent on the left side. However, there does not appe ar to be significant foraminal stenosis on either side at this level. No abnormal signal in the spin al cord at this level C4-5: This is 1 level above the fusion. There is relatively preserved disc height. There is posteri or annular bulging and osseous ridging. This effaces the thecal sac and contacts the anterior aspect of the spinal cord. There is an element of central canal stenosis with AP measurement of the canal being 7 mm at this level. The facet joints at this level exhibit mild-moderate degenerative changes. On the left side there is mild-moderate foraminal stenosis related to disc-Luschka joint osteophyte complex. On the right side at this level to there is only mild foraminal stenosis. Normal signal i n the cord at this level. C5-6: This level is fused with no remaining disc material. Central canal dimensions are within charline l limits. AP measurement of the canal at this level is 10 mm. There are mild degenerative changes i n the facet joints. No foraminal stenosis evident on the left side at this level. On the right side there is mild foraminal stenosis. C6-7: This level is also fused. There is no disc herniation or central canal stenosis. AP measureme nt of the canal at this level is 10 mm. There are mild degenerative changes in the left facet joint. No degenerative change in the right facet joint at this level. No foraminal stenosis on either cat e at this level. C7-T1: This is 1 level below the fusion. Normal disc height and signal. No disc herniation or centr al canal stenosis. Mild facet joint degenerative changes. No foraminal stenosis evident at this lev el. IMPRESSION: 1. Anterior fusion plate C5-6-7 levels with affective anterior fusion. Facet joints are not fused. The fused levels exhibit no evidence of central canal stenosis and no significant foraminal stenosis. 2. The main findings are at levels above the fusion at C3-4 and C4-5 as described above where there i s mild central canal stenosis at C3-4 and mild-moderate central canal stenosis at C4-5 level. See ab ove. 3. There is no abnormal signal in the cervical spinal cord and there is no evidence of cord atrophy n or focal cord swelling. No evidence of syringomyelia. DATA REPOSITORY:
== END 2024-07-24 00:42 ==
LOC: DI 00:23
PROVIDERS: PCP Family Medicine; Visit Provider Family Medicine
DX: M43.22 Fusion of spine, cervical region (principal)
CPT/HCPCS: 72141

== ENCOUNTER 2024-08-25 16:21 | Outpatient (REF) | payer OTHER, SELFPAY ==
[2024-08-25 16:03] LABS: Abs Immature Grans 0.01 10^3/uL (0.0-0.06); HCT 45.4 % (40.0-50.0); HGB 16.1 g/dL (13.5-17.5); Immature Grans % 0.2 %; MCH 32.5 pg (27.0-33.0); MCHC 35.5 % (32.0-36.0); MCV 92 fL (80-95); MPV 11.5 fL (8.0-11.0); Platelet Count 163 10^3/uL (130-400); RBC 4.96 10^6/uL (4.36-5.78); RDW 11.9 % (11.8-14.1); RDW-SD 39.8 fL; WBC 6.27 10^3/uL (4.4-10.8)
[2024-08-25 16:37] LABS: ALT 46 U/L (16-63); AST 25 U/L (15-37); Albumin 4.1 g/dL (3.4-5.0); Alkaline Phosphatase 63 U/L (46-116); Anion Gap 8.5 mmol/L (3-11); BUN 19 mg/dL (7-18); Bilirubin, Total 1.0 mg/dL (0.2-1.0); CO2 28.5 mmol/L (21.0-32.0); Calcium 9.0 mg/dL (8.5-10.1); Calculated LDL 65 mg/dL (<100); Chloride 104 mmol/L (98-107); Cholesterol 120 mg/dL (<200); Estimated GFR 75.90 (mL/min/1.73m2); Glucose 135 mg/dL (74-106); HDL Cholesterol 33 mg/dL (>or=40); Potassium 4.0 mmol/L (3.5-5.1); Sodium 141 mmol/L (136-145); Total Protein 6.7 g/dL (6.4-8.2); Triglyceride 114 mg/dL (<150)
[2024-08-25 16:42] LABS: Hemoglobin A1C 5.8 % (<5.7)
== END 2024-08-25 16:22 | disposition home or self-care (01) ==
LOC: NCHCN 16:21
PROVIDERS: PCP Family Medicine; Visit Provider Family Medicine
DX: R73.03 Prediabetes (principal); I10 Essential (primary) hypertension; E78.5 Hyperlipidemia, unspecified
CPT/HCPCS: 80053; 80061; 83036; 85025

== ENCOUNTER 2024-09-07 10:10 | Outpatient (CLI) | payer OTHER, SELFPAY ==
--- NOTE | 2024-09-07 09:30 | DI.RAD_ITS ---
Exam(s) XR FOOT LT COMPLETE EXAM: XR FOOT LT COMPLETE CLINICAL HISTORY: F/U L FOOT CYST. TECHNIQUE: 2D digital imaging was performed of the left foot. Three images were obtained. AP, oblique and lateral views were obtained. COMPARISON: US POCUS EXAM from 01/31/2023 CR XR FOOT LT COMPLETE from 12/09/2023 FINDINGS: BONES: No acute fracture is present. No bony destructive lesion is seen. There is an enthesophyte at the posterior calcaneus. JOINTS: No dislocation present. The joint spaces are well maintained. SOFT TISSUE: Normal. IMPRESSION: No acute abnormality. DATA REPOSITORY: RADIATION DOSE DELIVERED:
== END 2024-09-07 10:11 | disposition home or self-care (01) ==
LOC: DIORS 10:11
PROVIDERS: PCP Family Medicine; Visit Provider Student in an Organized Health Care Education/Training Program
DX: M67.472 Ganglion, left ankle and foot (principal)
CPT/HCPCS: 73630

== ENCOUNTER 2024-10-02 00:14 | Outpatient (CLI) | payer OTHER, SELFPAY ==
--- NOTE | 2024-10-02 08:15 | DI.MRI_ITS ---
Exam(s) MR LOWER EXTREMITY LT WO EXAM: MR LOWER EXTREMITY LT WO CLINICAL HISTORY: PAIN,ganglion cyst lt foot,m67.472. TECHNIQUE: Multiplanar multisequence MRI was performed. COMPARISON: CR XR FOOT LT COMPLETE from 09/07/2024 FINDINGS: BONES/JOINTS: No evidence of fracture. No evidence of bone lesion. No joint space narrowing identified. No joint effusion identified. LIGAMENTS: The medial and lateral collateral ligaments are intact. MUSCULOTENDINOUS STRUCTURES: Visualized portion of the planar fascia is unremarkable. The visualized intrinsic muscles and tendons of the foot are unremarkable. SOFT TISSUES: There is a 1.4 AP by 0.8 transverse by 1.0 craniocaudad cm mass in the soft tissues on the dorsum of the foot adjacent to the proximal 4th metatarsal bone. The mass is heterogeneously hyperintense on the T2 weighted images and isointense to the muscle on the T1 weighted images.The cortex of the adjacent 4th metatarsal bone appears disrupted (series 9001, image 28). OTHER FINDINGS: None. IMPRESSION: 1.4 x 0.8 x 1.0 cm soft tissue mass on the dorsum of the foot adjacent to the proximal 4th metatarsal. There is a question of cortical disruption of the adjacent 4th metatarsal. Further evaluation with a CT scan of the foot and postcontrast MRI is recommended. DATA REPOSITORY:
== END 2024-10-02 00:34 ==
PROVIDERS: PCP Family Medicine; Visit Provider Student in an Organized Health Care Education/Training Program
DX: M67.472 Ganglion, left ankle and foot (principal)
CPT/HCPCS: 73718

== ENCOUNTER 2024-11-02 09:21 | Outpatient (CLI) | payer OTHER, SELFPAY ==
--- NOTE | 2024-11-02 06:15 | DI.MRI_ITS ---
Exam(s) MR LOWER EXTREMITY LT W EXAM: MR LOWER EXTREMITY LT W CLINICAL HISTORY: pain,ganglion cyst lt foot,m67.42 TECHNIQUE: Multiplanar multisequence MRI was performed 1.5 deon unit with both pre and post contrast infused sequences. Contrast injected was 17 mL Dotarem intravenous.. COMPARISON: MR MR LOWER EXTREMITY LT WO from 10/02/2024 FINDINGS: MARROW:There is no evidence of fracture, bone contusion, nor avascular necrosis. There are no significant osseous lesions. There is no cortical disruption evident at the bases of the 4th and 5th metatarsals, as per request. No signal abnormality to suggest osteomyelitis. SOFT TISSUES: The previously described partially septated fluid collection in the interosseous space between the proximal 4th and 5th metatarsals is again noted, exhibiting rim enhancement in both the superior and inferior components of this collection. These may be connected by a thin stalk between the 2 bones at this level. More distally there is no evidence of interdigital/Rogers's neuroma. Small joint effusions evident in all of the metatarsophalangeal joints. The main Lisfranc joint and main Lisfranc ligament appear unremarkable TENDONS: Incidentally noted is tenosynovitis of the peroneus longus and brevis tendons. OTHER: Plantar fascia unremarkable. There is small effusions in the tibiotalar and posterior subtalar joint. IMPRESSION: 1. The previously described finding is probably a dumbbell-shaped inter osseous synovial/ganglion cyst; less likely abscess or neuroma. 2. There is no evidence of bony erosion nor other marrow signal abnormality. No evidence of osteomyelitis. 3. No evidence of Rogers's interdigital neuroma nor interdigital bursitis, however, there are small effusions in all of the metatarsophalangeal joints evident. There are also effusions in the ankle-tibiotalar joint as well as in the posterior talocalcaneal joint.. 4. Incidentally noted is tenosynovitis of the peroneus longus and brevis tendons. DATA REPOSITORY:
--- NOTE | 2024-11-02 10:07 | DI.CT_ITS ---
Exam(s) CT LOWER EXTREMITY LT WO EXAM: CT LOWER EXTREMITY LT WO CLINICAL HISTORY: PAIN,ganglion cyst lt foot,m67.472. TECHNIQUE: Imaging Protocol: Axial computed tomography images with coronal and sagittal reformatted images were created and reviewed. CONTRAST MATERIAL: Intravenous: None COMPARISON: CR XR FOOT LT COMPLETE from 09/07/2024 FINDINGS: Skin marker was placed over the area of clinical concern which is near the proximal aspect of the 4th metatarsal bone. There are no fractures nor diastasis of the Lisfranc joint. There are degenerative changes in the tibiotalar joint, mostly on its lateral aspect between the inner aspect of the medial malleolus and the adjacent outer aspect of the talus at this level. No significant osseous lesions at this level. There is cortical irregularity off the lateral aspect of the talus which may correspond to prior avulsion injury at this level. There is enthesophyte at the posterior calcaneus Achilles insertion site. There is a tiny sub millimeter corticated density adjacent to the calcaneocuboid joint. With respect to the area clinical clinical concern-swelling of the dorsal aspect of the foot in the region of the 4th and 5th metatarsal bases, there are no fractures at these levels. There is no significant cortical erosion of the bases of the 4th and 5th metatarsals at these levels. IMPRESSION: Degenerative changes in the tibiotalar joint, particularly on its medial aspect. Subtle evidence of probable prior avulsion injury off the lateral aspect of the mid talus. No evidence of fracture nor obvious cortical disruption subjacent to the area of soft tissue swelling over the dorsal aspect of the bases of the 4th and 5th metatarsals. See separate pending foot MRI report from today. RADIATION DOSE DELIVERED: 94.12mGy.cm Total DLP DATA REPOSITORY: All CT scans at this facility are submitted to the National Radiology Data Registry (NRDR) Dose Index Registry (DIR) with the [employer] (A[employer]). RADIATION OPTIMIZATION: All CT scans at this facility use at least one of these dose optimization techniques: automated exposure control; mA and/or kV adjustment per patient size (includes targeted exams where dose is matched to clinical indication); or iterative reconstruction.
[2024-11-02] MEDS: Normal Saline Flush 10 ML SYR IVP (11:04)
[2024-11-02] MEDS: Gadoterate meglumine 20 ML SYRINGE IVP (11:04)
--- NOTE | 2024-11-02 17:48 | DI.VRAD_ITS ---
PROCEDURE INFORMATION: Exam: MR Left Lower Extremity Other Than Joint With Contrast; Foot Exam date and time: 11/02/2024 10:58 AM Age: 63 years old Clinical indication: Pain; Foot; Left; Additional info: Mass dorsal foot 4th metacarpal. ? Cortical disruption TECHNIQUE: Imaging protocol: Magnetic resonance imaging of the left lower extremity with contrast. Exam focused on the foot. Total images: 516 Contrast material: DOTAREM; Contrast volume: 17 ml; Contrast route: INTRAVENOUS (IV); COMPARISON: CT LOWER EXTREMITY LT WO 11/02/2024 9:55 AM FINDINGS: Bones/joints: No bony abnormality including attention to the 4th metatarsal. Tibiotalar and subtalar mild joint effusions. Small septated fluid collections associated with the superior and inferior aspect of the interosseous space between the proximal aspect of the 4th and 5th metatarsals. There is surrounding rim enhancement. The superior component measures 5 x 4 mm and the inferior component 1 x 0.4 cm. Peroneal tendons: Peroneal tendon tenosynovitis. IMPRESSION: 1. Inflammation associated with what may represent interosseous synovial/ganglion cysts. Neuromas felt less likely. 2. No bony abnormality. Dictated and Authenticated by: Tate Gresham MD. Orderin Vivian Unger MD
== END 2024-11-02 09:41 ==
LOC: DI 09:22
PROVIDERS: PCP Family Medicine; Visit Provider Student in an Organized Health Care Education/Training Program
DX: M67.472 Ganglion, left ankle and foot (principal); M76.72 Peroneal tendinitis, left leg
CPT/HCPCS: 73719; 73700